=== PATIENT | female | born 1990 | race Caucasian/White ===

== ENCOUNTER → 2016-10-24 | Emergency (ER) | payer BC ==
[~2016-10-24] MED LIST: BUPIVACAINE HCL 0.5 % INJ/PF 30 ML SDV ONE; HYDROCODONE/ACETAMINOPHEN 5-325 MG TABLET ONE; KETOROLAC TROMETHAMINE INJ/PF 30 MG/1 ML SDV ONE; METHYLPREDNISOLONE ACETATE INJ 40 MG/1 ML ML ONE
[2016-10-24 08:41] LABS: ALANINE AMINOTRANSFERASE 17 U/L (9-52); ALBUMIN 4.2 g/dL (3.5-5.0); ALKALINE PHOSPHATASE 55 U/L (38-126); ANION GAP 13 (5-19); ASPARTATE AMINO TRANSFERASE 23 U/L (14-36); BILIRUBIN,TOTAL 0.3 mg/dL (0.2-1.3); BLOOD UREA NITROGEN 13 mg/dL (7-20); CALCIUM 9.7 mg/dL (8.4-10.2); CARBON DIOXIDE 27 mmol/L (22-30); CHLORIDE 101 mmol/L (98-107); CREATININE RESULT 0.68 mg/dL (0.52-1.25); GLUCOSE 98 mg/dL (75-110); POTASSIUM 3.9 mmol/L (3.6-5.0); SODIUM 140.7 mmol/L (137-145); TOTAL PROTEIN 7.5 g/dL (6.3-8.2)
[2016-10-24 08:44] LABS: ABSOLUTE EOSINOPHILS # (AUTO) 0.2 10^3/uL (0.0-0.6); ABSOLUTE LYMPHOCYTES (AUTO) 2.2 10^3/uL (0.5-4.7); ABSOLUTE MONOCYTES (AUTO) 0.6 10^3/uL (0.1-1.4); APPEARANCE,URINE CLEAR; BASOPHILS % (AUTO) 0.6 % (0-2); BILIRUBIN,URINE NEGATIVE (NEGATIVE); EOSINOPHILS % (AUTO) 2.8 % (0-6); GLUCOSE, URINE NEGATIVE (NEGATIVE); HEMATOCRIT 36.5 % (36.0-47.0); HEMOGLOBIN 12.4 g/dL (12.0-15.5); HGB HCT DIFFERENCE 0.7; KETONES,URINE NEGATIVE (NEGATIVE); LEUKOCYTE ESTERASE,URINE NEGATIVE (NEGATIVE); LYMPHOCYTES % (AUTO) 31.1 % (13-45); MEAN CORPUSCULAR HEMOGLOBIN 31.8 pg (27.0-33.4); MEAN CORPUSCULAR HGB CONC 33.9 g/dL (32.0-36.0); MEAN CORPUSCULAR VOLUME 94 fl (80-97); MONOCYTES % (AUTO) 8.5 % (3-13); NITRITE,URINE NEGATIVE (NEGATIVE); PROTEIN,URINE NEGATIVE (NEGATIVE); RED BLOOD COUNT 3.89 10^6/uL (3.72-5.28); RED CELL DISTRIBUTION WIDTH 12.3 % (11.5-14.0); URINE SPECIFIC GRAVITY 1.012; UROBILINOGEN,URINE NEGATIVE mg/dL (<2.0)
== END ==
LOC: ER 04:53
DX: R10.31 Right lower quadrant pain (principal)
CPT/HCPCS: 36415; 80053; 81001; 81025; 85025; 96361; 96374; 99284; J1020

== ENCOUNTER 2020-03-09 03:48 | Observation (INO) | payer BC, MEDICAID ==
[2020-03-09 05:27] LABS: ABSOLUTE EOSINOPHILS # (AUTO) 0.1 10^3/uL (0.0-0.6); ABSOLUTE LYMPHOCYTES (AUTO) 1.3 10^3/uL (0.5-4.7); ABSOLUTE MONOCYTES (AUTO) 0.9 10^3/uL (0.1-1.4); ABSOLUTE NEUT (AUTO) 11.1 10^3/uL (1.7-8.2); BASOPHILS % (AUTO) 0.1 % (0-2); EOSINOPHILS % (AUTO) 0.5 % (0-6); HEMATOCRIT 36.9 % (36.0-47.0); HEMOGLOBIN 12.9 g/dL (12.0-15.5); LYMPHOCYTES % (AUTO) 9.7 % (13-45); MEAN CORPUSCULAR HEMOGLOBIN 31.1 pg (27.0-33.4); MEAN CORPUSCULAR VOLUME 89 fl (80-97); MONOCYTES % (AUTO) 6.6 % (3-13); PLATELET COUNT 289 10^3/uL (150-450); RED BLOOD COUNT 4.16 10^6/uL (3.72-5.28); SEGMENTED NEUTROPHILS % (AUTO) 83.1 % (42-78); TOTAL CELLS COUNTED % (AUTO) 100 %; WHITE BLOOD COUNT 13.4 10^3/uL (4.0-10.5)
[2020-03-09 05:32] LABS: APPEARANCE,URINE SLIGHTLY-CLOUDY; BILIRUBIN,URINE NEGATIVE (NEGATIVE); COLOR,URINE YELLOW; GLUCOSE, URINE NEGATIVE (NEGATIVE); KETONES,URINE 80 mg/dL (NEGATIVE); LEUKOCYTE ESTERASE,URINE TRACE (NEGATIVE); NITRITE,URINE NEGATIVE (NEGATIVE); PROTEIN,URINE NEGATIVE (NEGATIVE); URINE SPECIFIC GRAVITY 1.021; UROBILINOGEN,URINE NEGATIVE mg/dL (<2.0)
[2020-03-09 05:37] LABS: ALBUMIN 4.2 g/dL (3.5-5.0); ALKALINE PHOSPHATASE 80 U/L (38-126); ANION GAP 11 (5-19); ASPARTATE AMINO TRANSFERASE 22 U/L (14-36); BILIRUBIN,TOTAL 0.3 mg/dL (0.2-1.3); BLOOD UREA NITROGEN 4 mg/dL (7-20); CALCIUM 9.7 mg/dL (8.4-10.2); CARBON DIOXIDE 22 mmol/L (22-30); CHLORIDE 101 mmol/L (98-107); GLUCOSE 94 mg/dL (75-110); TOTAL PROTEIN 7.6 g/dL (6.3-8.2)
[2020-03-09] MEDS ORDERED: ONDANSETRON HCL INJ/PF 4 MG/2 ML SDV IV ONE (06:11)
[2020-03-09] MEDS ORDERED: MORPHINE SULFATE 10 MG/ML INJ IV ONE ×2 (06:11→08:39)
--- NOTE | 2020-03-09 06:19 | ER Document Report ---
ED GI/ - Related Data Home Medications: vitamins <CARLOS JASSO - Last Filed: 03/09/20 07:52> <RAVINDRA SADLER - Last Filed: 03/09/20 08:50> - General Chief Complaint: Upper Abdominal Pain Stated Complaint: ABDOMINAL PAIN Time Seen by Provider: 03/09/20 06:05 Primary Care Provider: NINOSKA HUNT NP [Primary Care Provider] - Follow up as needed Notes: CHIEF COMPLAINT: Abdominal pain since yesterday HPI: 29-year-old female prima who is approximately 12 weeks by ultrasound who follows with [facility] presenting for right lower quadrant pain over the last 24 hours. Pain is been constant in nature. Patient states the pain becomes so bad at times that she will throw up. No kidney stone history. Patient states she had some discomfort a week ago and went to [facility] where she had an ultrasound of the gallbladder that showed no kidney stones. Patient states she has had an ultrasound of her and states that there is an intrauterine not an ectopic . Patient denies vaginal bleeding or discharge. Pain is worse with position or movement. She has not had a definitive fever. ROS: See HPI - all other systems were reviewed and are otherwise negative Constitutional: no fever Eyes: no drainage, no blurred vision ENT: no runny nose, no sore throat Cardiovascular: no chest pain Resp: no SOB, no cough GI: + vomiting, no diarrhea, + abdominal pain : no dysuria Integumentary: no rash Allergy: no hives Musculoskeletal: no extremity pain or swelling Neurological: no numbness/tingling, no weakness MEDICATIONS: I agree with the patient medications as charted by the RN. ALLERGIES: I agree with the allergies as charted by the RN. PAST MEDICAL HISTORY/PAST SURGICAL HISTORY: Reviewed and agree as charted by RN. SOCIAL HISTORY: Reviewed and agree as charted by RN. FAMILY HISTORY: No significant familial comorbid conditions directly related to patient complaint EXAM: Reviewed vital signs as charted by RN. CONSTITUTIONAL: Alert and oriented and responds appropriately to questions. Well-appearing; well-nourished, mildly uncomfortable appearing HEAD: Normocephalic; atraumatic EYES: PERRL; Conjunctivae clear, sclerae non-icteric ENT: normal nose; no rhinorrhea; moist mucous membranes; pharynx without lesions noted, no uvula edema or deviation, no tonsillar hypertrophy, phonation normal NECK: Supple without meningismus; non-tender; no cervical lymphadenopathy, no masses CARD: RRR; no murmurs, no clicks, no rubs, no gallops; symmetric distal pulses RESP: Normal chest excursion without splinting or tachypnea; breath sounds clear and equal bilaterally; no wheezes, no rhonchi, no rales, pulse oximetry 97% on room air not hypoxic ABD/GI: Normal bowel sounds; non-distended; soft, patient with no tenderness in the right upper quadrant on palpation. Minimal epigastric tenderness on palpation. Moderate tenderness in the right lower quadrant over McBurney's point with rebound and guarding; no palpable organomegaly or masses. BACK: The back appears normal and is non-tender to palpation, there is no CVA tenderness EXT: Normal ROM in all joints; non-tender to palpation; no cyanosis, no effusions, no edema SKIN: Normal color for age and race; warm; dry; good turgor; no acute lesions noted NEURO: Moves all extremities equally; Motor and sensory function intact PSYCH: The patient's mood and manner are appropriate. Grooming and personal h ygiene are appropriate. MDM: 29-year-old 12-week female with right lower quadrant pain. I nitial screening labs obtained in triage show mild leukocytosis of 13.5. States she had an ultrasound a week ago that showed no gallstones at [facility] emergency department. Differential would still include pyelonephritis, kidney stone. Given her we cannot CT of the abdomen will obtain MRI to rule out appendicitis (CARLOS JASSO) - Related Data Allergies/Adverse Reactions: No Known Allergies Allergy (Unverified 08/17/12 00:52) Past Medical History - Social History Smoking Status: Never Smoker Chew tobacco use (# tins/day): No Frequency of alcohol use: Occasional Drug Abuse: None Family History: Reviewed & Not Pertinent Patient has homicidal ideation: No - Immunizations Immunizations up to date: No Hx Diphtheria, Pertussis, Tetanus Vaccination: Yes - 2010 <CARLOS JASSO - Last Filed: 03/09/20 07:52> Physical Exam - Vital signs Vitals: Temp Pulse Resp BP Pulse Ox 97.4 F 95 20 112/46 L 100 03/09/20 04:16 03/09/20 04:16 03/09/20 04:16 03/09/20 04:16 03/09/20 04:16 Course - Laboratory Result Diagrams: 03/09/20 04:51 03/09/20 04:51 <CARLOS JASSO - Last Filed: 03/09/20 07:52> - Laboratory Result Diagrams: 03/09/20 04:51 03/09/20 04:51 <RAVINDRA SADLER - Last Filed: 03/09/20 08:50> - Re-evaluation Re-evalutation: 03/09/20 07:52 Report to BERT Robertson will follow and disposition (CARLOS JASSO) 03/09/20 08:40 Patient has acute appendicitis based off her MRI. Attempted to call Dr. Saravia, the surgeon talent acquisition director via the clarifying plant operator. Will await callback. 03/09/20 08:[address] Saravia, the surgeon talent acquisition director. States he will see the patient. We will give the patient another 2 mg of morphine, she is still in pain. We will also start her on Zosyn for antibiotic coverage. (CARMEL SADLERIE Yosvany) - Vital Signs Vital signs: Temp Pulse Resp BP Pulse Ox 98.9 F 91 18 129/77 H 97 03/09/20 08:00 03/09/20 08:00 03/09/20 08:00 03/09/20 08:00 03/09/20 08:00 - Laboratory Laboratory results interpreted by me: 03/09/20 03/09/20 03/09/20 04:51 04:51 04:51 WBC 13.4 H Lymph % (Auto) 9.7 L Absolute Neuts (auto) 11.1 H Seg Neutrophils % 83.1 H Sodium 134.4 L BUN 4 L Creatinine 0.51 L Beta HCG, Quant 949877.00 H Urine Ketones 80 H Ur Leukocyte Esterase TRACE H Discharge <CARLOS JASSO - Last Filed: 03/09/20 07:52> - Discharge Admitting Provider: Surgicalist Unit Admitted: Surgical Floor <CARMEL SADLERAVELINA Bar - Last Filed: 03/09/20 08:50> - Discharge Clinical Impression: 12 weeks gestation of Acute appendicitis Qualifiers: Acute appendicitis type: unspecified acute appendicitis type Qualified Code(s): K35.80 - Unspecified acute appendicitis Condition: Stable Disposition: ADMITTED INPATIENT Referrals: NINOSKA HUNT [employer] [Primary Care Provider] - Follow up as needed
[2020-03-09] MEDS ORDERED: NEOSTIGMINE METHYLSULFATE 10 MG/10 ML VIAL ONE (08:02)
[2020-03-09] MEDS ORDERED: GLYCOPYRROLATE 1 MG/5 ML VIAL ONE (08:02)
--- NOTE | 2020-03-09 08:37 | RADIOLOGY REPORT (SQ) ---
EXAM DESCRIPTION: MRI ABDOMEN WITHOUT IMAGES COMPLETED DATE/TIME: 03/09/2020 7:42 am REASON FOR STUDY: r/o appy in patient COMPARISON: None. TECHNIQUE: Multiplanar multisequence MR images of the abdomen were obtained without intravenous cont rast. FINDINGS: There is a thick-walled blind-ending tubular structure that extends from the base of the c ecum into the right adnexa consistent with a dilated inflamed appendix ; the diameter of the appendix measures 17 mm and its wall measures 4.2 mm in thickness. There is a round low T2 signal intralumin al filling defect near the orifice of the appendix that measures 6 mm in diameter consistent with an appendicolith. The high T2 signal around the dilated appendix in the right lower quadrant and right adnexum is consistent with fluid/ inflammation. There is a cluster of borderline enlarged reactive lymph nodes in the right lower quadrant that measu re up to 7 mm in diameter. There is no associated bowel obstruction. There is a gravid uterus. IMPRESSION: Findings as above consistent with an acute appendicitis. COMMENT: This report was called to Emergency Department at08:30 on 03/09/2020. TECHNICAL DOCUMENTATION: JOB ID: [id number] 2010 [employer]- All Rights Reserved Reading location - IP/workstation name: [email or web address]
[2020-03-09] MEDS ORDERED: PIPERACILLIN/TAZOBACTAM 3.375 GM VIAL IV ONE (08:44)
[2020-03-09] MEDS: DEXTROSE 5%-LACTATED RINGERS 1,000 ML IV PRN ×2 (10:48→23:34)
--- NOTE | 2020-03-09 11:28 | PDOC H&P ---
History of Present Illness Admission Date/PCP: 03/09/20 10:45 NINOSKA HUNT NP Patient complains of: Right lower quadrant pain History of Present Illness: SAEED BURROUGHS is a 29 year old female with a 2-day history of sharp, stabbing right lower quadrant pain. It began in the periumbilical region, and transitioned into the right lower quadrant. The pain intensified, and the patient presented for evaluation in the emergency department. She denies fevers, chills, nausea, vomiting, melena, hematochezia, hematemesis. She also denies chest pain, shortness of breath, headache, dizziness, orthostasis, fatigue, or malaise. She rates her pain 5 out of 10. It does not radiate. Nothing makes the pain better. Movement and palpation make it worse. She is currently 12 weeks . Past Medical History Medical History: None Renal/ History Note: She is currently 12 weeks . Past Surgical History Past Surgical History: Reports: None Social History Smoking Status: Never Smoker Electronic Cigarette use?: No Frequency of Alcohol Use: None Hx Recreational Drug Use: No Hx Prescription Drug Abuse: No Family History Family History: Reviewed & Not Pertinent Parental Family History Reviewed: Yes Children Family History Reviewed: Yes Sibling(s) Family History Reviewed.: Yes Medication/Allergy Home Medications: Pnv No.95/Ferrous Fum/Folic AC [ Caplet] 1 tab PO DAILY 03/09/20 Allergies/Adverse Reactions: No Known Allergies Allergy (Unverified 08/17/12 00:52) Review of Systems Constitutional: ABSENT: anorexia, chills, fatigue, fever(s), headache(s), night sweats, weakness Eyes: ABSENT: visual disturbances Ears: ABSENT: hearing changes Nose, Mouth, and Throat: ABSENT: headache(s), sore throat Cardiovascular: ABSENT: chest pain Respiratory: ABSENT: cough, dyspnea Gastrointestinal: PRESENT: abdominal pain. ABSENT: hematemesis, hematochezia, melena, nausea, vomiting Genitourinary: ABSENT: dysuria Integumentary: ABSENT: pruritus, rash Neurological: ABSENT: confusion, convulsions, dizziness Psychiatric: ABSENT: anxiety, depression Endocrine: ABSENT: cold intolerance, heat intolerance Hematologic/Lymphatic: ABSENT: easy bleeding, easy bruising Physical Exam Vital Signs: Temp Pulse Resp BP Pulse Ox 98.9 F 91 18 129/77 H 97 03/09/20 08:00 03/09/20 08:00 03/09/20 08:00 03/09/20 08:00 03/09/20 08:00 Intake & Output 03/08/20 03/09/20 03/10/20 06:59 06:59 06:59 Weight 92.079 kg General appearance: PRESENT: no acute distress, obese Head exam: PRESENT: atraumatic, normocephalic Eye exam: PRESENT: EOMI, PERRLA. ABSENT: scleral icterus Mouth exam: PRESENT: moist, neck supple Neck exam: ABSENT: meningismus, tenderness, thyromegaly, tracheal deviation Respiratory exam: PRESENT: unlabored. ABSENT: tachypnea, wheezes Cardiovascular exam: ABSENT: tachycardia Pulses: ABSENT: normal radial pulses Vascular exam: ABSENT: pallor GI/Abdominal exam: PRESENT: soft, tenderness - Right lower quadrant. ABSENT: distended, firm, rebound, rigid Rectal exam: PRESENT: deferred Extremities exam: ABSENT: clubbing Musculoskeletal exam: ABSENT: deformity Neurological exam: PRESENT: alert, awake, oriented to person, oriented to place, oriented to time, oriented to situation, CN II-XII grossly intact. ABSENT: motor sensory deficit Psychiatric exam: ABSENT: agitated, anxious, depressed Focused psych exam: ABSENT: delusional Skin exam: ABSENT: cyanosis, erythema, jaundice Results Laboratory Results: 03/09/20 04:51 03/09/20 04:51 03/09/20 03/09/20 03/09/20 04:51 04:51 04:51 WBC 13.4 H RBC 4.16 Hgb 12.9 Hct 36.9 MCV 89 MCH 31.1 MCHC 35.0 RDW 13.0 Plt Count 289 Seg Neutrophils % 83.1 H Sodium 134.4 L Potassium 4.0 Chloride 101 Carbon Dioxide 22 Anion Gap 11 BUN 4 L Creatinine 0.51 L Est GFR ( Amer) > 60 Glucose 94 Calcium 9.7 Total Bilirubin 0.3 AST 22 Alkaline Phosphatase 80 Total Protein 7.6 Albumin 4.2 Lipase 178.4 Urine Color YELLOW Urine Appearance SLIGHTLY-CLOUDY Urine pH 5.0 Ur Specific [place] 1.021 Urine Protein NEGATIVE Urine Glucose (UA) NEGATIVE Urine Ketones 80 H Urine Blood NEGATIVE Urine Nitrite NEGATIVE Ur Leukocyte Esterase TRACE H Urine WBC (Auto) 6 Urine RBC (Auto) 2 Impressions: Abdomen MRI 03/09/20 06:11 IMPRESSION: Findings as above consistent with an acute appendicitis. Assessment & Plan - Diagnosis (1) 12 weeks gestation of Is this a current diagnosis for this admission?: Yes (2) Acute appendicitis Qualifiers: Acute appendicitis type: unspecified acute appendicitis type Qualified Code(s): K35.80 - Unspecified acute appendicitis Is this a current diagnosis for this admission?: Yes - Plan Summary Plan Summary: This is a 29-year-old female who is 12 weeks . She has an elevated white blood cell count, and an MRI consistent with acute appendicitis. The patient clinically has signs and symptoms of appendicitis as well. A long discussion was had with the patient regarding potential treatment options. I have reviewed both operative and nonoperative management of her acute appendicitis. I have also discussed factors related to her . After much discussion, the patient has chosen operative intervention for her acute appendicitis. Risk to the fetus was discussed with both operative and nonoperative strategies. Benefits were also discussed at length for both strategies. Informed consent was obtained from the patient, and all questions were answered.
[2020-03-09] MEDS: ONDANSETRON HCL INJ/PF 4 MG/2 ML SDV IV PRN ×2 (11:30→17:43)
[2020-03-09] MEDS ORDERED: BUPIVACAINE HCL 0.25 % INJ/PF (2.5 MG/1 ML) 30 ML VIAL ONE (11:49)
[2020-03-09] MEDS ORDERED: ONDANSETRON HCL INJ/PF 4 MG/2 ML SDV IV PRN (12:47)
[2020-03-09] MEDS ORDERED: FENTANYL CITRATE INJ/PF 100 MCG/2 ML AMPUL IV PRN ×3 (12:47)
[2020-03-09] MEDS ORDERED: OXYCODONE-ACETAMINOPHEN 5-325 MG TABLET PO PRN ×2 (12:47)
[2020-03-09] MEDS ORDERED: MORPHINE SULFATE 10 MG/ML INJ IV PRN (12:47)
--- NOTE | 2020-03-09 13:12 | Operative Report ---
Nonrecallable Operative Report DATE OF SURGERY: 03/09/20 PREOPERATIVE DIAGNOSIS: Acute appendicitis POSTOPERATIVE DIAGNOSIS: Acute appendicitis with local/contained perforation OPERATION: Laparoscopic appendectomy SURGEON: NICK NOLASCO ANESTHESIA: GA TISSUE REMOVED OR ALTERED: Appendix COMPLICATIONS: None apparent ESTIMATED BLOOD LOSS: Minimal PROCEDURE: Drains/implants: None. Procedure in detail: After informed consent was obtained, the patient was brought to the operating room and laid in the supine position. The area of the abdomen was prepped and draped in a normal sterile fashion. An infraumbilical curvilinear incision was created with a 15 blade scalpel. Dissection was carried through the subcutaneous tissues using sharp and blunt dissection. The cicatrix is identified, grasped with a Gerri clamp, and retracted upwards. The linea alba fascia was incised sharply, the abdomen was entered sharply. The balloon trocar was inserted, and pneumoperitoneum was achieved. Upon examination of the abdomen a gravid uterus was seen within the pelvis. It did not extend up to the level of the umbilicus yet. Under direct laparoscopic visualization, a suprapubic 5 mm trocar was placed as well as a left lower quadrant 5 mm trocar. Next, atraumatic graspers were placed through the 5 mm ports. The appendix was identified. There was a dense inflammatory reaction to the right lower pelvic sidewall. Small bowel was teased away from the inflamed appendix, to reveal a locally perforated appendix with a small amount of purulent periappendiceal fluid. All of this fluid was suctioned and removed from the right lower quadrant. Next, the appendix was freed from the surrounding tissues using a mixture of blunt dissection and harmonic scalpel. The mesoappendix was taken down using the harmonic scalpel. The appendix was encircled x2 with PDS Endoloops. The harmonic scalpel was then used to amputate the appendix. The appendix was placed into an Endo Catch bag and pulled out through the umbilicus. The camera was reinserted. The right lower quadrant was inspected. There was good hemostasis noted. Next, the 5 mm trochars were removed under direct laparoscopic visualization. The infraumbilical trocar was then removed, and pneumoperitoneum was relieved. The infraumbilical fascia was closed using 0 Vicryl suture in [id number] fashion. The overlying skin was closed using 4-0 Vicryl Rapide suture in subcuticular fashion. Dressings were placed, and the procedure was concluded. All sponge, instrument, and needle counts were correct x2. Condition: Stable.
[2020-03-09] MEDS ORDERED: ONDANSETRON HCL INJ/PF 4 MG/2 ML SDV ONE (13:59)
[2020-03-09] MEDS: MORPHINE SULFATE 10 MG/ML INJ IV PRN ×2 (14:55→20:56)
[2020-03-09] MEDS: ACETAMINOPHEN 1,000 MG/100 ML RTUPB IV SCH ×2 (15:19→22:18)
[2020-03-09] MEDS: OXYCODONE HCL IR 5 MG TABLET PO PRN ×2 (17:54→23:33)
[2020-03-09] MEDS: PIPERACILLIN SODIUM/TAZOBACTAM 3.375 GM in NORMAL SALINE 100 ML IV SCH ×2 (17:55→23:34)
[2020-03-09] MEDS ORDERED: ACETAMINOPHEN 1,000 MG/100 ML RTUPB IV ONE (21:48)
[2020-03-10] MEDS: ONDANSETRON HCL INJ/PF 4 MG/2 ML SDV IV PRN ×2 (02:29→09:32)
[2020-03-10] MEDS: MORPHINE SULFATE 10 MG/ML INJ IV PRN ×2 (02:31→09:32)
[2020-03-10] MEDS ORDERED: PROMETHAZINE HCL INJ 25 MG/1 ML VIAL IV ONE (04:00)
[2020-03-10] MEDS ORDERED: ACETAMINOPHEN 1,000 MG/100 ML RTUPB IV ONE ×2 (04:57→21:04)
[2020-03-10] MEDS: ACETAMINOPHEN 1,000 MG/100 ML RTUPB IV SCH ×3 (05:03→21:32)
[2020-03-10] MEDS: PIPERACILLIN SODIUM/TAZOBACTAM 3.375 GM in NORMAL SALINE 100 ML IV SCH ×3 (05:26→18:19)
[2020-03-10 07:56] LABS: ABSOLUTE LYMPHOCYTES (AUTO) 1.1 10^3/uL (0.5-4.7); ABSOLUTE MONOCYTES (AUTO) 0.9 10^3/uL (0.1-1.4); ABSOLUTE NEUT (AUTO) 11.6 10^3/uL (1.7-8.2); BASOPHILS % (AUTO) 0.1 % (0-2); EOSINOPHILS % (AUTO) 0.1 % (0-6); HEMATOCRIT 32.9 % (36.0-47.0); HEMOGLOBIN 11.2 g/dL (12.0-15.5); LYMPHOCYTES % (AUTO) 8.3 % (13-45); MEAN CORPUSCULAR HEMOGLOBIN 30.4 pg (27.0-33.4); MEAN CORPUSCULAR HGB CONC 33.9 g/dL (32.0-36.0); MEAN CORPUSCULAR VOLUME 90 fl (80-97); MONOCYTES % (AUTO) 6.9 % (3-13); PLATELET COUNT 254 10^3/uL (150-450); RED BLOOD COUNT 3.67 10^6/uL (3.72-5.28); RED CELL DISTRIBUTION WIDTH 12.8 % (11.5-14.0); SEGMENTED NEUTROPHILS % (AUTO) 84.6 % (42-78); TOTAL CELLS COUNTED % (AUTO) 100 %; WHITE BLOOD COUNT 13.7 10^3/uL (4.0-10.5)
--- NOTE | 2020-03-10 08:33 | PDOC PROGRESS REPORT ---
Subjective Progress Note for:: 03/10/20 Subjective:: feels ok, no flatus Reason For Visit: ACUTE APPENDICITIS Physical Exam Vital Signs: Temp Pulse Resp BP Pulse Ox 98.2 F 114 H 20 115/68 98 03/10/20 03:40 03/10/20 03:40 03/10/20 03:40 03/10/20 03:40 03/10/20 03:40 Intake & Output 03/09/20 03/10/20 03/11/20 06:59 06:59 06:59 Intake Total 2750 Output Total 1355 Balance 1395 Weight 92.079 kg 93.6 kg General appearance: PRESENT: no acute distress Head exam: PRESENT: normocephalic Eye exam: PRESENT: EOMI Ear exam: PRESENT: normal external ear exam Mouth exam: PRESENT: moist Neck exam: PRESENT: full ROM Respiratory exam: PRESENT: clear to auscultation manjeet Cardiovascular exam: PRESENT: RRR Pulses: PRESENT: normal radial pulses, normal femoral pulses Vascular exam: PRESENT: normal capillary refill Breast: PRESENT: Normal GI/Abdominal exam: PRESENT: soft Rectal exam: PRESENT: deferred Gentrourinary exam: PRESENT: indwelling catheter Extremities exam: PRESENT: full ROM Musculoskeletal exam: PRESENT: full ROM Neurological exam: PRESENT: alert, altered, awake, oriented to person, oriented to place Psychiatric exam: PRESENT: appropriate affect Skin exam: PRESENT: dry Results Laboratory Results: 03/10/20 06:59 03/09/20 04:51 03/10/20 06:59 WBC 13.7 H RBC 3.67 L Hgb 11.2 L Hct 32.9 L MCV 90 MCH 30.4 MCHC 33.9 RDW 12.8 Plt Count 254 Seg Neutrophils % 84.6 H Impressions: Abdomen MRI 03/09/20 06:11 IMPRESSION: Findings as above consistent with an acute appendicitis. Assessment & Plan - Plan Summary Plan Summary: pod 1 s/p lap appy urine retention last night post op tenorio placed this am awake ambulatory will dc jona today reg diet cont iv abx home later today on po abx for 7 days if she can void and tolerates diet.
--- NOTE | 2020-03-10 12:18 | RADIOLOGY REPORT (SQ) ---
EXAM DESCRIPTION: U/S OB LIMITED IMAGES COMPLETED DATE/TIME: 03/10/2020 12:07 pm REASON FOR STUDY: s/p appy. need heart tones please COMPARISON: None. TECHNIQUE: Limited transabdominal grayscale ultrasound for evaluation of specific requested obstetri sugar parameters. LIMITATIONS: None. FINDINGS: EGA: 11 week 5 day. SAHIL: 09/24/2020. CRL: 4.9 cm. FHR: 175 beats per minute. OTHER: No other significant findings. IMPRESSION: LIMITED OBSTETRICAL ULTRASOUND WITH MEASURED PARAMETERS DELINEATED ABOVE. Trimester of : First trimester - 0 to 13 weeks. TECHNICAL DOCUMENTATION: JOB ID: [id number] 2010 [employer]- All Rights Reserved Reading location - IP/workstation name: [email or web address]
--- NOTE | 2020-03-10 12:54 | PDOC PROGRESS REPORT ---
Subjective Progress Note for:: 03/10/20 Subjective:: pt @ 12wga s/p lap appy, reports feeling sore; worried that something is wrong with her baby after surgery, has nuchal/nob at [facility] tomorrow. No other concerns. Reason For Visit: ACUTE APPENDICITIS Physical Exam - Physical Exam Vital Signs: Temp Pulse Resp BP Pulse Ox 98.3 F 99 22 H 93/53 L 99 03/10/20 08:00 03/10/20 08:00 03/10/20 08:00 03/10/20 08:00 03/10/20 08:00 Intake & Output 03/09/20 03/10/20 03/11/20 06:59 06:59 06:59 Intake Total 2750 100 Output Total 1355 700 Balance 1395 -600 Weight 92.079 kg 93.6 kg General appearance: PRESENT: no acute distress Neurological exam: PRESENT: alert, altered Psychiatric exam: PRESENT: flat affect Result Laboratory Results: 03/10/20 06:59 03/09/20 04:51 03/10/20 06:59 WBC 13.7 H RBC 3.67 L Hgb 11.2 L Hct 32.9 L MCV 90 MCH 30.4 MCHC 33.9 RDW 12.8 Plt Count 254 Seg Neutrophils % 84.6 H Impressions: Abdomen MRI 03/09/20 06:11 IMPRESSION: Findings as above consistent with an acute appendicitis. Obstetrics Ultrasound 03/10/20 00:00 IMPRESSION: LIMITED OBSTETRICAL ULTRASOUND WITH MEASURED PARAMETERS DELINEATED ABOVE. Trimester of : First trimester - 0 to 13 weeks. Assessment & Plan - Diagnosis (1) 12 weeks gestation of Is this a current diagnosis for this admission?: Yes Plan: abdomen soft, tender, unable to obtain heart tones with doppler. Pt sent to sono for u/s which found baby cwd, normal heart rate for gestational age as well as CL. (2) Acute appendicitis Qualifiers: Acute appendicitis type: unspecified acute appendicitis type Qualified Code(s): K35.80 - Unspecified acute appendicitis Is this a current diagnosis for this admission?: Yes Plan: stable, expected discharge later today - Time Time Spent with patient: Less than 15 minutes - Plan Summary Plan Summary: Pt reassured and to keep scheduled visit for nuchal/nob if d/c today. Reviewed warning s/s and reasons to rtc/ER prior to visit. pt asked questions and verbalized understanding
--- NOTE | 2020-03-10 13:13 | PDOC CONSULTATION ---
Consultation Consult Date: 03/10/20 Attending physician:: NICK NOLASCO Provider Consulted: SOPHIA LIZ Consult reason:: concerns about baby History of Present Illness Admission Date/PCP: 03/09/20 10:45 NINOSKA HUNT NP Patient complains of: abd pain after l/s appy History of Present Illness: SAEED BURROUGHS is a 29 year old female underwent l/s appy yesterday and is 12wks and is worried if baby is ok Past Medical History LMP: 12/17/2019 Gynecological Infection: No Psychiatric Medical History: Denies: Depression Social History Information Source: Patient Lives with: Family Smoking Status: Never Smoker Electronic Cigarette use?: No Frequency of Alcohol Use: None Hx Recreational Drug Use: No Drugs: None Hx Prescription Drug Abuse: No - Advance Directive Resuscitation Status: Full Code Family History Family History: None, Reviewed & Not Pertinent Parental Family History Reviewed: No Children Family History Reviewed: NA Sibling(s) Family History Reviewed.: NA Medication/Allergy Home Medications: Pnv No.95/Ferrous Fum/Folic AC [ Caplet] 1 tab PO DAILY 03/09/20 Allergies/Adverse Reactions: No Known Allergies Allergy (Unverified 08/17/12 00:52) Physical Exam - Physical Exam Vital Signs: Temp Pulse Resp BP Pulse Ox 98.2 F 88 22 H 122/72 100 03/10/20 12:00 03/10/20 12:00 03/10/20 12:00 03/10/20 12:00 03/10/20 12:00 Intake & Output 03/09/20 03/10/20 03/11/20 06:59 06:59 06:59 Intake Total 2750 100 Output Total 1355 700 Balance 1395 -600 Weight 92.079 kg 93.6 kg General appearance: PRESENT: no acute distress, well-developed, well-nourished GI/Abdominal exam: PRESENT: other - per CNM Rectal exam: PRESENT: deferred Neurological exam: PRESENT: alert, awake, oriented to person, oriented to place, oriented to time, oriented to situation, CN II-XII grossly intact. ABSENT: motor sensory deficit Psychiatric exam: PRESENT: appropriate affect, normal mood. ABSENT: homicidal ideation, suicidal ideation Skin exam: PRESENT: dry, intact, warm, other - incision c/d/i. ABSENT: cyanosis, rash Result Laboratory Results: 03/10/20 06:59 03/09/20 04:51 03/10/20 06:59 WBC 13.7 H RBC 3.67 L Hgb 11.2 L Hct 32.9 L MCV 90 MCH 30.4 MCHC 33.9 RDW 12.8 Plt Count 254 Seg Neutrophils % 84.6 H Impressions: Abdomen MRI 03/09/20 06:11 IMPRESSION: Findings as above consistent with an acute appendicitis. Obstetrics Ultrasound 03/10/20 00:00 IMPRESSION: LIMITED OBSTETRICAL ULTRASOUND WITH MEASURED PARAMETERS DELINEATED ABOVE. Trimester of : First trimester - 0 to 13 weeks. Status: Imported from PACS Assessment & Plan - Diagnosis (1) 12 weeks gestation of Is this a current diagnosis for this admission?: Yes Plan: apparently they were unable to get FHT last pm US this am with viable IUP at approp gestation. She has an appt with A for NF and new OB appt tomorrow. (2) Urinary retention Is this a current diagnosis for this admission?: Yes Plan: tenorio removed this am. Defer to primary team regarding DTV. (3) Acute appendicitis Qualifiers: Acute appendicitis type: unspecified acute appendicitis type Qualified Code(s): K35.80 - Unspecified acute appendicitis Is this a current diagnosis for this admission?: Yes Plan: defer to primary team - Time Medications reviewed and adjusted accordingly: Yes Anticipated discharge: Home Within: Other - per primary team - Inpatient Certification Based on my medical assessment, after consideration of the patient's comorbi dities, presenting symptoms, or acuity I expect that the services needed warrant INPATIENT care.: Yes I certify that my determination is in accordance with my understanding of Medicare's requirements for reasonable and necessary INPATIENT services [42 CFR 412.3e].: Yes Medical Necessity: Other - void and bowel per primary team - Plan Summary Plan Summary: keep appt with [facility] tomorrow.
[2020-03-10] MEDS: PROMETHAZINE HCL 25 MG TABLET PO PRN (20:04)
[2020-03-10] MEDS ORDERED: ONDANSETRON HCL INJ/PF 4 MG/2 ML SDV IV PRN (22:05)
[2020-03-10] MEDS ORDERED: METOCLOPRAMIDE HCL INJ/PF 10 MG/2 ML SDV IV PRN (22:11)
[2020-03-11] MEDS: DEXTROSE 5%-LACTATED RINGERS 1,000 ML IV PRN (00:09)
[2020-03-11] MEDS: PIPERACILLIN SODIUM/TAZOBACTAM 3.375 GM in NORMAL SALINE 100 ML IV SCH ×3 (00:09→11:07)
[2020-03-11] MEDS: PROMETHAZINE HCL 25 MG TABLET PO PRN (02:36)
[2020-03-11] MEDS: ACETAMINOPHEN 1,000 MG/100 ML RTUPB IV SCH (05:08)
[2020-03-11 06:56] LABS: ABSOLUTE BASOPHILS # (AUTO) 0.1 10^3/uL (0.0-0.2); ABSOLUTE MONOCYTES (AUTO) 0.9 10^3/uL (0.1-1.4); ABSOLUTE NEUT (AUTO) 11.2 10^3/uL (1.7-8.2); BASOPHILS % (AUTO) 0.4 % (0-2); EOSINOPHILS % (AUTO) 0.3 % (0-6); HEMATOCRIT 31.6 % (36.0-47.0); HEMOGLOBIN 10.9 g/dL (12.0-15.5); LYMPHOCYTES % (AUTO) 7.7 % (13-45); MEAN CORPUSCULAR HEMOGLOBIN 30.8 pg (27.0-33.4); MEAN CORPUSCULAR HGB CONC 34.6 g/dL (32.0-36.0); MEAN CORPUSCULAR VOLUME 89 fl (80-97); MONOCYTES % (AUTO) 6.6 % (3-13); PLATELET COUNT 270 10^3/uL (150-450); RED BLOOD COUNT 3.55 10^6/uL (3.72-5.28); TOTAL CELLS COUNTED % (AUTO) 100 %; WHITE BLOOD COUNT 13.2 10^3/uL (4.0-10.5)
--- NOTE | 2020-03-11 10:20 | PDOC DISCHARGE SUMMARY ---
General - Admit/Disc Date/PCP Admission Date/Primary Care Provider: 03/09/20 10:45 NINOSKA HUNT NP Discharge Date: 03/11/20 - Discharge Diagnosis Final Diagnosis: appendiciits - Assessment Summary: pt 14wks presented with appendicitis taken to operating room for laparoscopic appendectomy noted to have early perforation rx with iv abx pt improved over 48hrs. nausea resolved and she became tolerant to reg diet and had return of bowel function will dc home on po augmentin f/u in 7-10 days. - Additional Information Resuscitation Status: Full Code Discharge Diet: As Tolerated Discharge Activity: Activity As Tolerated, No Lifting Over 10 Pounds Referrals: NINOSKA HUNT, BERT [Primary Care Provider] - Follow up as needed Prescriptions: Amoxicillin/Potassium Clav [Augmentin 875-125 Tablet] 1 tab PO BID #20 tab Home Medications: Pnv No.95/Ferrous Fum/Folic AC [ Caplet] 1 tab PO DAILY 03/09/20 Amoxicillin/Potassium Clav [Augmentin 875-125 Tablet] 1 tab PO BID #20 tab 03/11/20 History of Present Illiness History of Present Illness: SAEED BURROUGHS is a 29 year old female Physical Exam Vital Signs: Temp Pulse Resp BP Pulse Ox 98.0 F 94 18 115/68 97 03/11/20 08:20 03/11/20 08:20 03/11/20 08:20 03/11/20 08:20 03/11/20 08:20 Intake & Output 03/10/20 03/11/20 03/12/20 06:59 06:59 06:59 Intake Total 2750 2950 Output Total 1355 1950 Balance 1395 1000 Weight 93.6 kg Results Laboratory Results: WBC 13.2 10^3/uL (4.0-10.5) H 03/11/20 06:35 RBC 3.55 10^6/uL (3.72-5.28) L 03/11/20 06:35 Hgb 10.9 g/dL (12.0-15.5) L 03/11/20 06:35 Hct 31.6 % (36.0-47.0) L 03/11/20 06:35 MCV 89 fl (80-97) 03/11/20 06:35 MCH 30.8 pg (27.0-33.4) 03/11/20 06:35 MCHC 34.6 g/dL (32.0-36.0) 03/11/20 06:35 RDW 13.0 % (11.5-14.0) 03/11/20 06:35 Plt Count 270 10^3/uL (150-450) 03/11/20 06:35 Lymph % (Auto) 7.7 % (13-45) L 03/11/20 06:35 [place] % (Auto) 6.6 % (3-13) 03/11/20 06:35 Eos % (Auto) 0.3 % (0-6) 03/11/20 06:35 Baso % (Auto) 0.4 % (0-2) 03/11/20 06:35 Absolute Neuts (auto) 11.2 10^3/uL (1.7-8.2) H 03/11/20 06:35 Absolute Lymphs (auto) 1.0 10^3/uL (0.5-4.7) 03/11/20 06:35 Absolute Monos (auto) 0.9 10^3/uL (0.1-1.4) 03/11/20 06:35 Absolute Eos (auto) 0.0 10^3/uL (0.0-0.6) 03/11/20 06:35 Absolute Basos (auto) 0.1 10^3/uL (0.0-0.2) 03/11/20 06:35 Seg Neutrophils % 85.0 % (42-78) H 03/11/20 06:35 Sodium 134.4 mmol/L (137-145) L 03/09/20 04:51 Potassium 4.0 mmol/L (3.6-5.0) 03/09/20 04:51 Chloride 101 mmol/L (98-107) 03/09/20 04:51 Carbon Dioxide 22 mmol/L (22-30) 03/09/20 04:51 Anion Gap 11 (5-19) 03/09/20 04:51 BUN 4 mg/dL (7-20) L 03/09/20 04:51 Creatinine 0.51 mg/dL (0.52-1.25) L 03/09/20 04:51 Est GFR ( Amer) > 60 (>60) 03/09/20 04:51 Est GFR (MDRD) Non-Af > 60 (>60) 03/09/20 04:51 Glucose 94 mg/dL (75-110) 03/09/20 04:51 Calcium 9.7 mg/dL (8.4-10.2) 03/09/20 04:51 Total Bilirubin 0.3 mg/dL (0.2-1.3) 03/09/20 04:51 Direct Bilirubin 0.0 mg/dL (0.0-0.4) 03/09/20 04:51 Neonat Total Bilirubin Not Reportable 03/09/20 04:51 Neonat Direct Bilirubin Not Reportable 03/09/20 04:51 Neonat Indirect Bili Not Reportable 03/09/20 04:51 AST 22 U/L (14-36) 03/09/20 04:51 ALT 17 U/L (<35) 03/09/20 04:51 Alkaline Phosphatase 80 U/L (38-126) 03/09/20 04:51 Total Protein 7.6 g/dL (6.3-8.2) 03/09/20 04:51 Albumin 4.2 g/dL (3.5-5.0) 03/09/20 04:51 Lipase 178.4 U/L (23-300) 03/09/20 04:51 Beta HCG, Quant 072170.00 mIU/mL (0.0-6.15) H 03/09/20 04:51 Total Beta HCG POSITIVE (NEGATIVE) 03/09/20 04:51 Urine Color YELLOW 03/09/20 04:51 Urine Appearance SLIGHTLY-CLOUDY 03/09/20 04:51 Urine pH 5.0 (5.0-9.0) 03/09/20 04:51 Ur Specific [place] 1.021 03/09/20 04:51 Urine Protein NEGATIVE mg/dL (NEGATIVE) 03/09/20 04:51 Urine Glucose (UA) NEGATIVE mg/dL (NEGATIVE) 03/09/20 04:51 Urine Ketones 80 mg/dL (NEGATIVE) H 03/09/20 04:51 Urine Blood NEGATIVE (NEGATIVE) 03/09/20 04:51 Urine Nitrite NEGATIVE (NEGATIVE) 03/09/20 04:51 Urine Bilirubin NEGATIVE (NEGATIVE) 03/09/20 04:51 Urine Urobilinogen NEGATIVE mg/dL (<2.0) 03/09/20 04:51 Ur Leukocyte Esterase TRACE (NEGATIVE) H 03/09/20 04:51 Urine WBC (Auto) 6 /HPF 03/09/20 04:51 Urine RBC (Auto) 2 /HPF 03/09/20 04:51 Urine Bacteria (Auto) TRACE /HPF 03/09/20 04:51 Squamous Epi Cells Auto 14 /HPF 03/09/20 04:51 Urine Mucus (Auto) MANY /LPF 03/09/20 04:51 Urine Ascorbic Acid NEGATIVE (NEGATIVE) 03/09/20 04:51 SARS-CoV-2 (PCR) NEGATIVE (NEGATIVE) 03/09/20 10:00 Impressions: Abdomen MRI 03/09/20 06:11 IMPRESSION: Findings as above consistent with an acute appendicitis. Obstetrics Ultrasound 03/10/20 00:00 IMPRESSION: LIMITED OBSTETRICAL ULTRASOUND WITH MEASURED PARAMETERS DELINEATED ABOVE. Trimester of : First trimester - 0 to 13 weeks.
[2020-03-11 11:29] VITALS: BP 112/60
== END 2020-03-11 13:26 | disposition home or self-care (01) ==
LOC: ER 03:48 → EH 10:45 → 4N 14:36 → 2N 17:10
PROVIDERS: ADMIT Surgery; ATTEND Surgery
DX: O26.891 Other specified pregnancy related conditions, first trimester (principal); O99.611 Diseases of the digestive system complicating pregnancy, first trimester; K35.32 Acute appendicitis with perforation, localized peritonitis, and gangrene, without abscess; N99.89 Other postprocedural complications and disorders of genitourinary system; R33.9 Retention of urine, unspecified; O99.211 Obesity complicating pregnancy, first trimester; E66.9 Obesity, unspecified; Z3A.12 12 weeks gestation of pregnancy; Z03.818 Encounter for observation for suspected exposure to other biological agents ruled out
CPT/HCPCS: 96376; 99285; 96375; 96365; 36415 ×3; 84702; 83690; 85025 ×3; 87635; 80053; 81001; 88304 ×2; 74181; 76815; 99140; 00840; 44970; G0378 ×4; J2250; J1100; J3010; J2765; J2270 ×2; J2710; J1170; J2550; J2405 ×2; J7121 ×2; J7050 ×3; J2704; J2543 ×3; J0131 ×3; J3490; 840

== ENCOUNTER 2020-08-15 19:42 | Outpatient (CLI) | payer BC, MEDICAID ==
[2020-08-15 20:17] LABS: APPEARANCE,URINE CLEAR; BILIRUBIN,URINE NEGATIVE (NEGATIVE); COLOR,URINE YELLOW; GLUCOSE, URINE NEGATIVE (NEGATIVE); KETONES,URINE TRACE mg/dL (NEGATIVE); LEUKOCYTE ESTERASE,URINE NEGATIVE (NEGATIVE); NITRITE,URINE NEGATIVE (NEGATIVE); PROTEIN,URINE NEGATIVE (NEGATIVE); URINE SPECIFIC GRAVITY 1.015; UROBILINOGEN,URINE NEGATIVE mg/dL (<2.0)
--- NOTE | 2020-08-15 20:40 | Non Stress Test Report ---
Non Stress Test Datetime Report Generated by CPN: 08/15/2020 20:40 DEMOGRAPHIC EGA NST: 34.4 INDICATION Indication for Study (NST) Other: lc for srom MONITORING Monitor Explained: Monitor Explained; Test Explained; Patient Verbalized Understanding Time on Monitor: 08/15/2020 20:00 Time off Monitor: 08/15/2020 20:37 NST Duration: 37 NST INTERVENTIONS NST Interventions: PO Hydration; Reposition Patient Physician Notified NST: Dr Rodriguez BABY A: [id number] BABY A Movement : Present Contraction Frequency : irreg FHR Baseline : 140 Accelerations : 15X15 Decelerations : None Variability : Moderate 6-25bpm NST Review: Meets Criteria for Reactive NST NST Review and Verified By : Sid Baker RN NST Results: Reactive NST REPORT Report Trigger: Send Report
[2020-08-15 20:41] LABS: URINE AMPHETAMINES SCREEN NEGATIVE; URINE BARBITURATES SCREEN NEGATIVE; URINE BENZODIAZEPINES SCREEN NEGATIVE; URINE COCAINE SCREEN NEGATIVE; URINE MARIJUANA (THC) SCREEN NEGATIVE; URINE METHADONE SCREEN NEGATIVE; URINE PHENCYCLIDINE SCREEN NEGATIVE
== END 2020-08-15 20:42 | disposition home or self-care (01) ==
LOC: LC 19:42
PROVIDERS: ATTEND Obstetrics & Gynecology Gynecology
DX: O47.03 False labor before 37 completed weeks of gestation, third trimester (principal); Z3A.34 34 weeks gestation of pregnancy; Z02.83 Encounter for blood-alcohol and blood-drug test
CPT/HCPCS: 59025; 80307; 81001; 84112

== ENCOUNTER 2020-08-24 14:46 | Outpatient (CLI) | payer BC, MEDICAID ==
[2020-08-24 15:33] LABS: APPEARANCE,URINE CLOUDY; BILIRUBIN,URINE NEGATIVE (NEGATIVE); COLOR,URINE YELLOW; GLUCOSE, URINE NEGATIVE (NEGATIVE); KETONES,URINE 20 mg/dL (NEGATIVE); LEUKOCYTE ESTERASE,URINE SMALL (NEGATIVE); NITRITE,URINE NEGATIVE (NEGATIVE); PROTEIN,URINE 30 mg/dL (NEGATIVE); URINE SPECIFIC GRAVITY 1.019; UROBILINOGEN,URINE NEGATIVE mg/dL (<2.0)
[2020-08-24 16:00] LABS: URINE AMPHETAMINES SCREEN NEGATIVE; URINE BARBITURATES SCREEN NEGATIVE; URINE COCAINE SCREEN NEGATIVE; URINE MARIJUANA (THC) SCREEN NEGATIVE; URINE METHADONE SCREEN NEGATIVE; URINE PHENCYCLIDINE SCREEN NEGATIVE
[2020-08-24 16:03] LABS: URINE BENZODIAZEPINES SCREEN NEGATIVE
--- NOTE | 2020-08-24 17:51 | Non Stress Test Report ---
Non Stress Test Datetime Report Generated by CPN: 08/24/2020 17:50 DEMOGRAPHIC EGA NST: 35.6 INDICATION Indication for Study (NST) Other: eval for irregular contractions VITAL SIGNS Temperature - NST: 98.3 Pulse - NST: 88 RESP - NST: 18 NBPSYS NST: 118 NBPDIA NST: 80 URINE RESULTS Urine Protein, NST: Positive Urine Ketones - NST: Positive Urine Glucose - NST: Negative Urine Blood - NST: Negative MONITORING Monitor Explained: Monitor Explained; Test Explained; Patient Verbalized Understanding Time on Monitor: 08/24/2020 15:00 Time off Monitor: 08/24/2020 16:28 NST Duration: 88 NST INTERVENTIONS NST Interventions: PO Hydration Physician Notified NST: C Schroeder CNM BABY A: [id number] BABY A Movement : Present Contraction Frequency : 4-15 FHR Baseline : 145 Accelerations : 15X15 Decelerations : None Variability : Moderate 6-25bpm NST Review: Meets Criteria for Reactive NST NST Review and Verified By : Lesly Camp RNC NST Results: Reactive NST REPORT Report Trigger: Send Report
--- OUTSIDE RECORDS SUMMARY | 2020-08-26 14:37 | XMS REPORT ---
:1990 Author Organization [facility] Address [facility] [place] [address] [place] [id number] Care Team Providers Name Role Phone MD Allen Marte Attending Clinician Unavailable MD Santa Marte Attending Clinician Unavailable Kady Attending Clinician Unavailable Allergies, Adverse Reactions, Alerts This patient has no known allergies or adverse reactions. Medications This patient has no known medications. Problems This patient has no known problems. Procedures Procedure Date / Time Performed Performing Clinician Lola carter Vaginal ultrasound of 2020-03-16 09:59:00 uterus Urinalysis, manual test 2020-03-16 09:59:00 Hemoglobin A1C level 2020-03-16 09:59:00 [id number] 2020-03-16 09:59:00 Established patient office or other 2020-03-16 09:59:00 outpatient visit, typically 15 minutes Urine test 2020-03-01 11:46:00 Biopsy and scraping of the cervix 2019-11-18 10:28:00 using an endoscope OFFICE OUTPT EST15 MIN 2018-02-26 14:08:00 COLPOSCOPY CERVIX BX 2018-02-20 11:41:00 CERVIX\T\ENDOCRV CURTG URNLS DIP STICK/TABLET RGNT 2018-02-20 11:41:00 NON-AUTO W/O EMANUEL URINE TST VIS COLOR 2018-02-20 11:41:00 CMPRSN METHS PDIC COMPRE PREV MED REE/M EST PT 2018-01-28 15:13:00 18-39 URNLS DIP STICK/TABLET RGNT 2018-01-28 15:13:00 NON-AUTO W/O EMANUEL OFFICE OUTPT EST15 MIN 2017-07-11 12:29:00 SMR PRIM SRC WET MOUNT NFCT AGT 2017-07-11 12:29:00 URNLS DIP STICK/TABLET RGNT 2017-07-11 12:29:00 NON-AUTO W/O EMANUEL OFFICE OUTPT EST15 MIN 2017 12:59:00 OFFICE OUTPT EST15 MIN 2017-02-06 16:11:00 URNLS DIP STICK/TABLET RGNT 2017-02-06 16:11:00 NON-AUTO W/O EMANUEL Results Test Description Test Time Test Comments Text Results Atomic Results Result Comments Progesterone 2020-02-09 09:48:00 Test Item Value Reference Range Comments Progesterone (test code = 12.600 ng/mL Follic ular phase 0.1 - 2830) 0.9\X000d\\X0A\ Luteal phase 1.8 - 23.9\X000d\\X0A\ Ovulation phase 0.1 - 12.0\X000d\\X0A\ \X000d\\ X0A\ First trimester 11.0 - 44.3\X000d\\X0A\ Second trimester 25.4 - 83.3\X000d\\X0A\ Third trimester 58.7 - 214.0\X000d\\X0A \ Postmenopausal 0.0 - 0.1\X000d\\X0A\ Lipid [id number] 09:48:00 Test Item Value Reference Range Comments Triglycerides (test code = 2503) 90.000 mg/dL 0-149 Cholesterol, Total (test code = 2500) 184.000 mg/dL 100-199 LDL Cholesterol Calc (test code = 2502) 90.000 mg/dL 0-99 HDL Cholesterol (test code = 2501) 76.000 mg/dL >39 VLDL Cholesterol Neal (test code = 2504) 18.000 mg/dL 5-40 Vitamin D, 25-Hydroxy ([id number])2019-02-16 15:56:00 Test Item Value Reference Range Comments Vitamin D, 25-hydroxy (test 28.600 ng/mL 30.0-100.0 Paula min D deficiency has been code = 2962) defined by the I nstitute of\X000d\\X0A\ Medicine and an Endocrine Society practice guideline as a\X000d\\X0A\ level of serum 25-OH vitamin D less than 20 n g/mL (1,2).\X000d\\X0 A\ The Endocrine S ociety went on to further de fine vitamin D\X000d\\X0A\ insufficiency a s a level between 21 and 2 9 ng/mL (2).\X000d\\X0A\ 1. IOM (Institu te of Medicine). 2010. Dietary reference\X000d\ \X0A\ intakes for calcium and D. Haynes DC : The\X000d\\X0A\ National [facility] demies Press.\X000d\\X0 A\ 2. Jessica MF, B yaz NC, Harini CLARKE, et al.\X000d\\X0A\ Evaluation, treatment, and prevention o f vitamin D\X000d\\X0A\ deficiency: an Endocrine Society clinical practice\X000d\\ X0A\ guideline. J LETICIA. 2010; 96(7):1911-30.\X 000d\\X0A\ T3 [id number] 15:56:00 Test Item Value Reference Range Comments Free Thyroxine Index (test code = 3045) 1.800 1.2-4.9 T3 Uptake (test code = 2843) 26.000 % 24-39 Lipid [id number] 15:56:00 Test Item Value Reference Range Comments VLDL Cholesterol Neal (test code = 2504) 16.000 mg/dL 5-40 HDL Cholesterol (test code = 2501) 95.000 mg/dL >39 Triglycerides (test code = 2503) 82.000 mg/dL 0-149 LDL Cholesterol Calc (test code = 2502) 110.000 mg/dL 0-99 Cholesterol, Total (test code = 2500) 221.000 mg/dL 100-199 [id number] 15:56:00 Test Item Value Reference Range Comments TSH (test code = 2280) 0.881 uIU/mL 0.450-4.500 Thyroxine (T4)2019-02-16 15:56:00 Test Item Value Reference Range Comments Thyroxine (T4) (test code = 2864) 6.900 ug/dL 4.5-12.0 CMP14 (640010) [id number] 15:56:00 Test Item Value Reference Range Comments Egfr If Africn Am (test code = 3068) 142.000 mL/min/1.73 >59 Sodium, Serum (test code = 2337) 136.000 mmol/L 135-145 Creatinine, Serum (test code = 2330) 0.650 mg/dL 0.76-1.27 Globulin, Total (test code = 2333) 2.700 g/dL 1.5-4.5 ALT (SGPT) (test code = 2322) 14.000 IU/L 0-55 BUN (test code = 2325) 8.000 mg/dL 6-20 eGFR If NonAfricn Am (test code = 2332) 123.000 mL/min/1.73 >59 Chloride, Serum (test code = 2329) 100.000 mmol/L 97-108 Carbon Dioxide, Total (test code = 2328) 20.000 mmol/L 20-32 Protein, Total, Serum (test code = 2336) 7.500 g/dL 6.0-8.5 A/G Ratio (test code = 2319) 1.800 1.1-2.5 Glucose, Serum (test code = 2334) 85.000 mg/dL 65-99 Potassium, Serum (test code = 2335) 4.300 mmol/L 3.5-5.2 AST (SGOT) (test code = 2323) 19.000 IU/L 0-40 BUN/Creatinine Ratio (test code = 2326) 12.000 8-19 Bilirubin, Total (test code = 2324) 0.300 mg/dL 0.0-1.2 Calcium, Serum (test code = 2327) 9.600 mg/dL 8.7-10.2 Alkaline Phosphatase, S (test code = 81.000 IU/L 25-150 2321) Albumin, Serum (test code = 2320) 4.800 g/dL 3.5-5.5 Thyroid Peroxidase (TPO) [id number] 15:56:00 Test Item Value Reference Range Comments Thyroid Peroxidase (TPO) Ab (test code = 2861) 24.000 IU/mL 0 -34 CBC (357541) [id number] 15:56:00 Test Item Value Reference Range Comments RBC (test code = 2367) 4.080 x10E6/uL 4.10-5.60 Basos (test code = 2347) 0.000 % 0-3 Immature Grans (Abs) (test code = 2354) 0.000 x10E3/uL 0.0-0.1 Neutrophils (Absolute) (test code = 2364) 5.500 x10E3/uL 1.8-7. 8 Neutrophils (test code = 2363) 69.000 % 40-74 Lymphs (Absolute) (test code = 2357) 1.500 x10E3/uL 0.7-4.5 MCH (test code = 2358) 31.900 pg 27.0-34.0 RDW (test code = 2368) 13.500 % 11.7-15.0 Hemoglobin (test code = 2352) 13.000 g/dL 12.5-17.0 Platelets (test code = 2366) 371.000 x10E3/uL 140-415 MCHC (test code = 2359) 35.200 g/dL 32.0-36.0 Eos (Absolute) (test code = 2349) 0.400 x10E3/uL 0.0-0.4 Hematocrit (test code = 2350) 36.900 % 36.0-50.0 Baso (Absolute) (test code = 2346) 0.000 x10E3/uL 0.0-0.2 Immature Granulocytes (test code = 2355) 0.000 % 0-2 Monocytes (test code = 2361) 7.000 % 4-13 Eos (test code = 2348) 5.000 % 0-7 Lymphs (test code = 2356) 19.000 % 14-46 Monocytes(Absolute) (test code = 2362) 0.500 x10E3/uL 0.1-1.0 WBC (test code = 2369) 8.000 x10E3/uL 4.0-10.5 MCV (test code = 2360) 90.000 fL 80-98 Assessments Condition Name Status Diagnosis Date Treating Clinici an Encounter for supervision of normal Active , unspecified, unspecified trimester Encounter for other specified Active screening Less than 8 weeks gestation of Active Encounter for test, result Active positive Personal history of other diseases of the Active female genital tract Personal history of other diseases of the Active female genital tract Personal History of Other Genital System and Active Obstetric Disorders Personal History of Other Genital System and Active Obstetric Disorders Atypical squamous cells of undetermined Active significance on cytologic smear of cervix (ASC-US) Atypical squamous cells of undetermined Active significance on cytologic smear of cervix (ASC-US) Atypical squamous cells of undetermined Active significance on cytologic smear of cervix (ASC-US) Abnormal Weight Gain Active Family hx of other endocrine \T\ metabolic Active dx Abnormal Weight Gain Active Family hx of other endocrine \T\ metabolic Active dx Abnormal Weight Gain Active Family hx of other endocrine \T\ metabolic Active dx Body mass index (BMI) 30.0-30.9, adult Active Body mass index (BMI) 30.0-30.9, adult Active Body mass index (BMI) 30.0-30.9, adult Active Obesity, unspecified Active Abnormal weight gain Active Family history of other endocrine, Active nutritional and metabolic diseases Obesity, unspecified Active Abnormal weight gain Active Family history of other endocrine, Active nutritional and metabolic diseases Obesity, unspecified Active Abnormal weight gain Active Family history of other endocrine, Active nutritional and metabolic diseases Mild cervical dysplasia Active Mild cervical dysplasia Active Mild cervical dysplasia Active Personal History of Hazards to Health Not Active Elsewhere Classified Personal History of Hazards to Health Not Active Elsewhere Classified Personal History of Hazards to Health Not Active Elsewhere Classified Cervical high risk human papillomavirus Active (HPV) DNA test positive Low grade squamous intraepithelial lesion on Active cytologic smear of cervix (LGSIL) Encounter for test, result Active negative Low grade squamous intraepithelial lesion on Active cytologic smear of cervix (LGSIL) Cervical high risk human papillomavirus Active (HPV) DNA test positive Encounter for test, result Active negative Low grade squamous intraepithelial lesion on Active cytologic smear of cervix (LGSIL) Cervical high risk human papillomavirus Active (HPV) DNA test positive Encounter for test, result Active negative Mild cervical dysplasia Active Low grade squamous intraepithelial lesion on Active cytologic smear of cervix (LGSIL) Encounter for test, result Active negative Cervical high risk human papillomavirus Active (HPV) DNA test positive Other seasonal allergic rhinitis Active Other seasonal allergic rhinitis Active Other seasonal allergic rhinitis Active Contact with and (suspected) exposure to Active potentially hazardous body fluids Contact with and (suspected) exposure to Active potentially hazardous body fluids Contact with and (suspected) exposure to Active potentially hazardous body fluids Contact with and (suspected) exposure to Active potentially hazardous body fluids Other seasonal allergic rhinitis Active Candidiasis, unspecified Active Candidiasis, unspecified Active Candidiasis, unspecified Active Acute Stress Reaction Not Otherwise Active Specified Acute Stress Reaction Not Otherwise Active Specified Acute Stress Reaction Not Otherwise Active Specified Acute stress reaction Active Acute stress reaction Active Acute stress reaction Active Other specified noninflammatory disorders of Active vulva and perineum Other specified noninflammatory disorders of Active vulva and perineum Other specified noninflammatory disorders of Active vulva and perineum Other specified noninflammatory disorders of Active vulva and perineum Candidiasis, unspecified Active Acute stress reaction Active Urinary Tract Infection Not Otherwise Active Specified Dysuria Active Urinary tract infection, site not specified Active Dysuria Active Urinary Tract Infection Not Otherwise Active Specified Urinary tract infection, site not specified Active Dysuria Active Dysuria Active Urinary Tract Infection Not Otherwise Active Specified Dysuria Active Urinary tract infection, site not specified Active Dysuria Active 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 intermediate (current) use of opiate analgesic Active Urinary tract infection, site not specified Active Dysuria Active Laboratory exam ordered as part of a routine Active general medical exam Special Screening Examination for Malignant Active Neoplasm of Cervix Other depressive episodes Active Encounter for general adult medical Active examination without abnormal findings Other depressive episodes Active Encounter for general adult medical Active examination without abnormal findings Laboratory exam ordered as part of a routine Active general medical exam Special Screening Examination for Malignant Active Neoplasm of Cervix Other depressive episodes Active Encounter for general adult medical Active examination without abnormal findings Laboratory exam ordered as part of a routine Active general medical exam Special Screening Examination for Malignant Active Neoplasm of Cervix Other Prophylactic Vaccination and Active Inoculation Against Viral Diseases Encounter for immunization Active Encounter for immunization Active Other Prophylactic Vaccination and Active Inoculation Against Viral Diseases Encounter for immunization Active Other Prophylactic Vaccination and Active Inoculation Against Viral Diseases Major depressive disorder, single episode, Active unspecified Depressive Disorder Not Elsewhere Classified Active Major depressive disorder, single episode, Active unspecified Major depressive disorder, single episode, Active unspecified Depressive Disorder Not Elsewhere Classified Active Major depressive disorder, single episode, Active unspecified Depressive Disorder Not Elsewhere Classified Active Encounter for gynecological examination Active (general) (routine) without abnormal findings Routine Gynecological Examination Active Encounter for gynecological examination Active (general) (routine) without abnormal findings Encounter for gynecological examination Active (general) (routine) without abnormal findings Routine Gynecological Examination Active Encounter for gynecological examination Active (general) (routine) without abnormal findings Routine Gynecological Examination Active Encounter for screening for malignant Active neoplasm of cervix Encounter for screening for malignant Active neoplasm of cervix Encounter for screening for malignant Active neoplasm of cervix Encounter for screening for malignant Active neoplasm of cervix Encounter for screening for other infectious Active and parasitic diseases Encounter for screening for infectious and Active parasitic diseases, unspecified Encounter for screening for other infectious Active and parasitic diseases Encounter for screening for infectious and Active parasitic diseases, unspecified Encounter for screening for other infectious Active and parasitic diseases Encounter for screening for infectious and Active parasitic diseases, unspecified Special Screening Examination for Diabetes Active Mellitus Abnormal Loss of Weight Active Encounter for screening for diabetes Active mellitus Special Screening Examination for Diabetes Active Mellitus Abnormal Loss of Weight Active Encounter for screening for diabetes Active mellitus Special Screening Examination for Diabetes Active Mellitus Abnormal Loss of Weight Active Encounter for screening for diabetes Active mellitus Panic Disorder withou Agoraphobia Active Generalized Anxiety Disorder Active Special Screening Examination for Thyroid Active Disorders Panic disorder [episodic paroxysmal anxiety] Active without agoraphobia Encounter for screening for other suspected Active endocrine disorder Panic disorder [episodic paroxysmal anxiety] Active without agoraphobia Encounter for screening for other suspected Active endocrine disorder Panic Disorder withou Agoraphobia Active Generalized Anxiety Disorder Active Special Screening Examination for Thyroid Active Disorders Panic disorder [episodic paroxysmal anxiety] Active without agoraphobia Encounter for screening for other suspected Active endocrine disorder Panic Disorder withou Agoraphobia Active Generalized Anxiety Disorder Active Special Screening Examination for Thyroid Active Disorders Generalized anxiety disorder Active Generalized anxiety disorder Active Generalized anxiety disorder Active Other halfway (current) drug therapy Active Anxiety State Not Otherwise Specified Active Monitor Meds Active Other buttermaker continuous churn (current) drug therapy Active Other halfway (current) drug therapy Active Anxiety State Not Otherwise Specified Active Monitor Meds Active Other halfway (current) drug therapy Active Anxiety State Not Otherwise Specified Active Monitor Meds Active Lumbago lower back pain Active Eating Disorder Not Elsewhere Classified Active Low back pain Active Other eating disorders Active Lumbago lower back pain Active Low back pain Active Other eating disorders Active Eating Disorder Not Elsewhere Classified Active Low back pain Active Other eating disorders Active Lumbago lower back pain Active Eating Disorder Not Elsewhere Classified Active Unspecified Insomnia Active Vitamin D Deficiency Not Otherwise Specified Active Vitamin D deficiency, unspecified Active Unspecified Insomnia Active Vitamin D Deficiency Not Otherwise Specified Active Vitamin D deficiency, unspecified Active Vitamin D deficiency, unspecified Active Unspecified Insomnia Active Vitamin D Deficiency Not Otherwise Specified Active Hyperthyroidism Active Thyrotoxicosis, unspecified without Active thyrotoxic crisis or storm Thyrotoxicosis, unspecified without Active thyrotoxic crisis or storm Thyrotoxicosis, unspecified without Active thyrotoxic crisis or storm Hyperthyroidism Active Hyperthyroidism Active Anxiety disorder, unspecified Active Abnormal weight loss Active Anxiety disorder, unspecified Active Insomnia, unspecified Active Encounter for screening for lipoid disorders Active Abnormal weight loss Active Anxiety disorder, unspecified Active Insomnia, unspecified Active Encounter for screening for lipoid disorders Active Abnormal weight loss Active Anxiety disorder, unspecified Active Insomnia, unspecified Active Encounter for screening for lipoid disorders Active Encounters Start End Encounter Admission Attending Care Care Encounter Date/Time Date/Time Type Type Clinicians Facility Department ID 2020-03-04 2020-03-04 E 1 Allen Marte [facility] [id number] 00:05:00 02:56:00 Allen Marte 2020-02-09 2020-02-09 Outpatient RED HillmanP Kady [id number] 00:00:00 00:00:00 [facility] 2020-01-26 2020-01-26 Outpatient Kady KMP [place] [id number] 00:00:00 00:00:00 [facility] 2019-09-28 2019-09-28 Outpatient KadyREDP Kady [id number] 00:00:00 00:00:00 [facility] 2018-01-14 2018-01-14 Outpatient [place] KMP Kady [id number] 00:00:00 00:00:00 [facility] 2018-01-07 2018-01-07 Outpatient [place], [facility]MP [place] [id number] 00:00:00 00:00:00 [facility] 2017-12-09 2017-12-09 Outpatient Kady, KMP Kady [id number] 00:00:00 00:00:00 [facility] 2017-06-05 2017-06-05 Outpatient Kady [facility] [place] [id number] 00:00:00 00:00:00 [facility] 2017-05-15 2017-05-15 Outpatient [place] [facility] [place] [id number] 00:00:00 00:00:00 [facility] 2017-01-08 2017-01-08 Outpatient KMP [place] [id number] 00:00:00 00:00:00 Medical Payers Payer Name Policy Type Policy Number Effective Date Expiration D ate Social History This patient has no known social history. Vital Signs This patient has no known vital signs.
== END 2020-08-24 16:47 | disposition home or self-care (01) ==
LOC: LC 14:46
PROVIDERS: ATTEND Obstetrics & Gynecology
DX: O47.03 False labor before 37 completed weeks of gestation, third trimester (principal); Z3A.35 35 weeks gestation of pregnancy; Z02.83 Encounter for blood-alcohol and blood-drug test
CPT/HCPCS: 59025; 80307; 81001

== ENCOUNTER 2020-09-20 15:11 | Outpatient (CLI) | payer BC, MEDICAID ==
[2020-09-20 16:01] LABS: APPEARANCE,URINE CLEAR; BILIRUBIN,URINE NEGATIVE (NEGATIVE); COLOR,URINE STRAW; GLUCOSE, URINE NEGATIVE (NEGATIVE); KETONES,URINE NEGATIVE (NEGATIVE); LEUKOCYTE ESTERASE,URINE NEGATIVE (NEGATIVE); NITRITE,URINE NEGATIVE (NEGATIVE); PROTEIN,URINE NEGATIVE (NEGATIVE); URINE SPECIFIC GRAVITY 1.005; UROBILINOGEN,URINE NEGATIVE mg/dL (<2.0)
[2020-09-20 16:23] LABS: URINE AMPHETAMINES SCREEN NEGATIVE; URINE BARBITURATES SCREEN NEGATIVE; URINE BENZODIAZEPINES SCREEN NEGATIVE; URINE COCAINE SCREEN NEGATIVE; URINE MARIJUANA (THC) SCREEN NEGATIVE; URINE METHADONE SCREEN NEGATIVE; URINE PHENCYCLIDINE SCREEN NEGATIVE
[2020-09-20 17:28] LABS: UR PRO/CREAT RATIO RESULT 0.6 mg/mg (0.0-0.2); URINE CREATININE 23.4 mg/dL (16-327); URINE PROTEIN 13.6 mg/dL (<12)
[2020-09-20 18:00] LABS: HEMOGLOBIN 11.7 g/dL (12.0-15.5); MEAN CORPUSCULAR HEMOGLOBIN 29.6 pg (27.0-33.4); MEAN CORPUSCULAR HGB CONC 33.3 g/dL (32.0-36.0); MEAN CORPUSCULAR VOLUME 89 fl (80-97); PLATELET COUNT 156 10^3/uL (150-450); RED BLOOD COUNT 3.93 10^6/uL (3.72-5.28); RED CELL DISTRIBUTION WIDTH 15.5 % (11.5-14.0); WHITE BLOOD COUNT 8.2 10^3/uL (4.0-10.5)
[2020-09-20 18:19] LABS: ALBUMIN 3.3 g/dL (3.5-5.0); ALKALINE PHOSPHATASE 157 U/L (38-126); ANION GAP 8 (5-19); ASPARTATE AMINO TRANSFERASE 22 U/L (14-36); BILIRUBIN,TOTAL 0.2 mg/dL (0.2-1.3); BLOOD UREA NITROGEN 9 mg/dL (7-20); CALCIUM 9.5 mg/dL (8.4-10.2); CARBON DIOXIDE 20 mmol/L (22-30); CHLORIDE 106 mmol/L (98-107); GLUCOSE 114 mg/dL (75-110); POTASSIUM 4.1 mmol/L (3.6-5.0); TOTAL PROTEIN 6.3 g/dL (6.3-8.2); URIC ACID 4.6 mg/dL (2.5-6.2)
--- NOTE | 2020-09-20 18:45 | Non Stress Test Report ---
Non Stress Test Datetime Report Generated by CPN: 09/20/2020 18:45 DEMOGRAPHIC Test Number: 3 EGA NST: 39.5 INDICATION Indication for Study (NST) Other: Pre-E workup from [facility] VITAL SIGNS Temperature - NST: 97.9 Pulse - NST: 93 RESP - NST: 17 NBPSYS NST: 132 NBPDIA NST: 81 MONITORING Monitor Explained: Monitor Explained; Test Explained; Patient Verbalized Understanding Time on Monitor: 09/20/2020 15:26 Time off Monitor: 09/20/2020 16:51 NST Duration: 85 NST INTERVENTIONS NST Interventions: None Physician Notified NST: Dr. Segal BABY A: [id number] BABY A Movement : Present Contraction Frequency : Irregular FHR Baseline : 130 Accelerations : 15X15 Decelerations : None Variability : Moderate 6-25bpm NST Review: Meets Criteria for Reactive NST NST Review and Verified By : GUMARO Toribio Results: Reactive NST REPORT Report Trigger: Send Report
== END 2020-09-20 18:43 | disposition home or self-care (01) ==
LOC: LC 15:11
PROVIDERS: ATTEND Obstetrics & Gynecology
DX: O16.3 Unspecified maternal hypertension, third trimester (principal); Z3A.39 39 weeks gestation of pregnancy
CPT/HCPCS: 36415; 59025; 80053; 80307; 81005; 82570; 83615; 84156; 84550; 85027

== ENCOUNTER 2020-09-21 18:11 | Outpatient (CLI) | payer BC, MEDICAID ==
[2020-09-21 18:41] LABS: APPEARANCE,URINE SLIGHTLY-CLOUDY; BILIRUBIN,URINE NEGATIVE (NEGATIVE); COLOR,URINE YELLOW; GLUCOSE, URINE NEGATIVE (NEGATIVE); KETONES,URINE 20 mg/dL (NEGATIVE); LEUKOCYTE ESTERASE,URINE TRACE (NEGATIVE); NITRITE,URINE NEGATIVE (NEGATIVE); PROTEIN,URINE 30 mg/dL (NEGATIVE); URINE SPECIFIC GRAVITY 1.016; UROBILINOGEN,URINE NEGATIVE mg/dL (<2.0)
[2020-09-21 19:00] LABS: URINE AMPHETAMINES SCREEN NEGATIVE; URINE BARBITURATES SCREEN NEGATIVE; URINE BENZODIAZEPINES SCREEN NEGATIVE; URINE COCAINE SCREEN NEGATIVE; URINE MARIJUANA (THC) SCREEN NEGATIVE; URINE METHADONE SCREEN NEGATIVE; URINE PHENCYCLIDINE SCREEN NEGATIVE
[2020-09-21 19:01] LABS: 24 HOUR URINE PROTEIN RESULT 99 mg/day (42-225); URINE PROTEIN 7.6 mg/dL (<12)
== END 2020-09-21 19:39 | disposition home or self-care (01) ==
LOC: LC 18:11
PROVIDERS: ATTEND Obstetrics & Gynecology Gynecology
DX: O13.3 Gestational [pregnancy-induced] hypertension without significant proteinuria, third trimester (principal); Z3A.39 39 weeks gestation of pregnancy
CPT/HCPCS: 59025; 80307; 81001; 84156

== ENCOUNTER 2020-09-23 05:28 | Inpatient (IN) | payer BC, MEDICAID ==
[2020-09-23] MEDS ORDERED: OXYTOCIN/0.9 % SODIUM CHLORIDE 30 UNIT/500 ML RTUINJ IV PRN (05:40)
[2020-09-23] MEDS ORDERED: DINOPROSTONE 10 MG VAGINAL INSERT.SR PV PRN (05:40)
[2020-09-23] MEDS ORDERED: RINGERS SOLUTION,LACTATED 1,000 ML IV ONE (05:41)
[2020-09-23] MEDS ORDERED: RINGERS SOLUTION,LACTATED 1,000 ML IV PRN (05:41)
[2020-09-23] MEDS ORDERED: OXYTOCIN/0.9 % SODIUM CHLORIDE 30 UNIT/500 ML RTUINJ ONE (06:27)
[2020-09-23] MEDS ORDERED: DINOPROSTONE 10 MG VAGINAL INSERT.SR ONE (06:27)
[2020-09-23] MEDS ORDERED: OXYTOCIN 10 UNIT/ML VIAL ONE (06:27)
[2020-09-23] MEDS ORDERED: LIDOCAINE 1% INJ-PF (10 MG/ML) 30 ML SDV ONE (06:27)
[2020-09-23] MEDS ORDERED: MISOPROSTOL 0.2 MG TABLET ONE (06:27)
[2020-09-23 06:28] LABS: ABSOLUTE EOSINOPHILS # (AUTO) 0.2 10^3/uL (0.0-0.6); ABSOLUTE LYMPHOCYTES (AUTO) 1.5 10^3/uL (0.5-4.7); ABSOLUTE MONOCYTES (AUTO) 0.6 10^3/uL (0.1-1.4); ABSOLUTE NEUT (AUTO) 5.4 10^3/uL (1.7-8.2); BASOPHILS % (AUTO) 0.4 % (0-2); HEMATOCRIT 34.8 % (36.0-47.0); HEMOGLOBIN 11.7 g/dL (12.0-15.5); MEAN CORPUSCULAR HEMOGLOBIN 29.6 pg (27.0-33.4); MEAN CORPUSCULAR HGB CONC 33.5 g/dL (32.0-36.0); MEAN CORPUSCULAR VOLUME 88 fl (80-97); MONOCYTES % (AUTO) 7.8 % (3-13); PLATELET COUNT 147 10^3/uL (150-450); RED BLOOD COUNT 3.95 10^6/uL (3.72-5.28); RED CELL DISTRIBUTION WIDTH 15.6 % (11.5-14.0); SEGMENTED NEUTROPHILS % (AUTO) 69.8 % (42-78); TOTAL CELLS COUNTED % (AUTO) 100 %; WHITE BLOOD COUNT 7.7 10^3/uL (4.0-10.5)
[2020-09-23 06:30] LABS: APPEARANCE,URINE SLIGHTLY-CLOUDY; BILIRUBIN,URINE NEGATIVE (NEGATIVE); COLOR,URINE YELLOW; GLUCOSE, URINE NEGATIVE (NEGATIVE); KETONES,URINE TRACE mg/dL (NEGATIVE); LEUKOCYTE ESTERASE,URINE NEGATIVE (NEGATIVE); NITRITE,URINE NEGATIVE (NEGATIVE); PROTEIN,URINE NEGATIVE (NEGATIVE); URINE SPECIFIC GRAVITY 1.014; UROBILINOGEN,URINE NEGATIVE mg/dL (<2.0)
[2020-09-23 06:41] LABS: URINE AMPHETAMINES SCREEN NEGATIVE; URINE BARBITURATES SCREEN NEGATIVE; URINE BENZODIAZEPINES SCREEN NEGATIVE; URINE COCAINE SCREEN NEGATIVE; URINE MARIJUANA (THC) SCREEN NEGATIVE; URINE METHADONE SCREEN NEGATIVE; URINE PHENCYCLIDINE SCREEN NEGATIVE
--- NOTE | 2020-09-23 07:18 | Admission Physical ---
Datetime Report Generated by CPN: 09/23/2020 07:17 CURRENT ADMISSION Chief Complaint: Scheduled Induction of Labor Indication for Induction: Gestational HTN Admit Impression : Term, Intrauterine Admit Plan: Admit to Unit; Initiate Labor Induction Protocol ALLERGIES Medication Allergies: No Medication Allergies: No Known Allergies (09/23/2020) Latex: No Latex Allergies Food Allergies: none Environmental Allergies: none OBSTETRICAL HISTORY EDC: 09/22/2020 00:00 : 1 Para: 0 Term: 0 : 0 SAB: 0 IAB: 0 Ectopic: 0 Livin Cesareans: 0 VBACs: 0 Multiple Births: 0 Gestational Diabetes: No Rh Sensitization: No Incompetent Cervix: No LAN: No Infertility: No ART Treatment: No Uterine Anomaly: No IUGR: No Hx Previous C/S: No Macrosomia: No Hx Loss/Stillborn: No PIH: Yes Hx : No Placenta Previa/Abruption: No Depression/PP Depression: No PTL/PROM: No Post Hemorrhage: No Current Procedures: Ultrasound; NST Obstetrical History Comments: G1- current- Gestional HTN SEE RECORDS Alcohol: No Marijuana : No Cocaine: No Other Illicit Drugs: No Cigarettes: Never Smoker. 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 Surgery: No Heart Disease: No Hosp/Surgery: Yes Autoimmune Disorder: No Anesthetic Complications: No Kidney Disease: No Abnormal Pap Smear: No Neuro/Epilepsy: No Psychiatric Disorders: No Other Medical Diseases: No Hepatitis/Liver Disease: No Significant Family History: No Varicosities/Phlebitis: No Trauma/Violence : No Thyroid Dysfunction: No Medical History Comments: Appendectomy 03/14/2020 INFECTIOUS HISTORY Gonorrhea: No Genital Herpes: No Chlamydia: No Tuberculosis: No Syphilis: No Hepatitis: No HIV/AIDS Exposure: No Rash or Viral Illness: No HPV: Yes Infectious History Comments: [facility]US HPV 2019 PHYSICAL EXAM General: Normal HEENT: Normal Neurologic: Normal Thyroid: Normal Heart: Normal Lungs: Normal Breast: Deferred Back: Normal Abdomen: Normal Genitourinary Exam: Normal Extremities: Normal DTRs: Normal Pelvic Type: Adequate Vital Signs: Reviewed VAGINAL EXAM Dilatation: 0 Effacement: 0 Station: -2 MEMBRANES Pooling: Negative Membranes: Intact FETUS A EGA: 40.1 Monitoring: External US FHR- Baseline: 120 Variability: Moderate 6-25bpm Decelerations: None FHR Category: Category I Presentation: Vertex Admit Comment: admit for cervadil PLANS FOR LABOR AND DELIVERY Labor and Delivery: None Pain Management: Epidural Feeding Preference: Breast Benefit of Breast Feed Discussed: Yes Circumcision: N/A INFORMED CONSENT Signature: with User ID: [email or web address]
--- NOTE | 2020-09-23 10:39 | L&D Progress Notes ---
PROGRESS NOTES Datetime Report Generated by CPN: 09/23/2020 10:39 PROGRESS NOTE Comment: cervidil placed at 0638 this am. cvx cked at 0830. possibly fingertip/thick/hi/post/soft. Reactive NST. Not feeling anything now. may need to switch to cytotec VAGINAL EXAM Dilatation: 0 Effacement: 0 Station: -2 LAST VAGINAL EXAM-NURSING Nursing Exam Dilitation: 0.0 Nursing Exam Station: high Nursing Exam Contractions: Pt relates "I've felt one" contraction since arrival. MEMBRANES Pooling: Negative Membranes: Intact FETUS A : 40.0 Presentation: Vertex SIGNATURE SIGNATURE: [id number];[id number];[id number] Signature: Electronically signed by Alisha Roberto MD ([facility]) on 09/23/2020 at 10:38 with User ID: [email or web address]
--- NOTE | 2020-09-23 10:44 | L&D Progress Notes ---
PROGRESS NOTES Datetime Report Generated by CPN: 09/23/2020 10:44 PROGRESS NOTE Comment: EFW on recent US 7#16oz. continue with IOL VAGINAL EXAM Dilatation: 0 Effacement: 0 Station: -2 LAST VAGINAL EXAM-NURSING Nursing Exam Dilitation: 0.0 Nursing Exam Station: high Nursing Exam Contractions: Pt relates "I've felt one" contraction since arrival. MEMBRANES Pooling: Negative Membranes: Intact FETUS A : 40.0 Presentation: Vertex SIGNATURE SIGNATURE: [id number];[id number];[id number] Signature: with User ID: [email or web address]
--- NOTE | 2020-09-23 21:14 | L&D Progress Notes ---
PROGRESS NOTES Datetime Report Generated by CPN: 09/23/2020 21:14 PROGRESS NOTE Comment: Very posterior. ft/soft/25/very high. Will try to augment contractions with pitocin. then when able to reach cervix better will try cooks catheter. Reassuring FWB. Reviewed plan of care with patient. VAGINAL EXAM Dilatation: 0 Effacement: 0 Station: -2 LAST VAGINAL EXAM-NURSING Nursing Exam Dilitation: 0.5 Nursing Exam Station: high Nursing Exam Contractions: Pt relates "I've felt one" contraction since arrival. MEMBRANES Pooling: Negative Membranes: Intact FETUS A : 40.0 Presentation: Vertex SIGNATURE SIGNATURE: 10,[id number];14,[id number];13,[id number] Signature: with User ID: [email or web address]
[2020-09-24] MEDS ORDERED: FENTANYL/BUPIVACAINE/NS/PF 300 MCG/150 ML RTUINJ EPI ONE (03:43)
[2020-09-24] MEDS ORDERED: EPHEDRINE SULFATE INJ 50 MG/1 ML AMPULE ONE (03:43)
[2020-09-24] MEDS ORDERED: ROPIVACAINE HCL 0.2% INJ/PF (2 MG/ML) 20 ML SDV ONE (03:44)
[2020-09-24 04:25] LABS: HEMATOCRIT 33.3 % (36.0-47.0); HEMOGLOBIN 11.2 g/dL (12.0-15.5); MEAN CORPUSCULAR HGB CONC 33.6 g/dL (32.0-36.0); MEAN CORPUSCULAR VOLUME 89 fl (80-97); PLATELET COUNT 134 10^3/uL (150-450); RED BLOOD COUNT 3.72 10^6/uL (3.72-5.28); RED CELL DISTRIBUTION WIDTH 15.3 % (11.5-14.0); WHITE BLOOD COUNT 10.1 10^3/uL (4.0-10.5)
[2020-09-24] MEDS ORDERED: ONDANSETRON HCL INJ/PF 4 MG/2 ML SDV ONE (08:49)
[2020-09-24] MEDS ORDERED: ONDANSETRON HCL INJ/PF 4 MG/2 ML SDV IV ONE (08:51)
[2020-09-24] MEDS ORDERED: MEASLES,MUMPS&RUBELLA VACC/PF 0.5 ML VIAL SUBCUT PRN (11:51)
[2020-09-24] MEDS ORDERED: ACETAMINOPHEN 325 MG TABLET PO PRN (11:51)
[2020-09-24] MEDS ORDERED: ACETAMINOPHEN 650 MG SUPP.RECT PR PRN (11:51)
[2020-09-24] MEDS ORDERED: BENZOCAINE/MENTHOL AEROSOL SPRAY 56 ML TOP PRN (11:51)
[2020-09-24] MEDS ORDERED: PROMETHAZINE HCL 25 MG SUPP.RECT PR PRN (11:51)
[2020-09-24] MEDS ORDERED: GLYCERIN/WITCH HAZEL LEAF 1 EACH MED..WIPE TP PRN (11:51)
[2020-09-24] MEDS ORDERED: PROMETHAZINE HCL 25 MG TABLET PO PRN (11:51)
[2020-09-24] MEDS ORDERED: PROMETHAZINE HCL INJ 25 MG/1 ML VIAL IV PRN (11:51)
[2020-09-24] MEDS ORDERED: PSEUDOEPHEDRINE HCL 30 MG TABLET PO PRN (11:51)
[2020-09-24] MEDS ORDERED: DIPHENHYDRAMINE HCL 25 MG CAPSULE PO PRN (11:51)
[2020-09-24] MEDS ORDERED: OXYTOCIN/0.9 % SODIUM CHLORIDE 30 UNIT/500 ML RTUINJ IV PRN (11:51)
[2020-09-24] MEDS ORDERED: NA PHOS,M-B/NA PHOS,DI-BA (ADULT) 133 ML ENEMA PR PRN (11:51)
[2020-09-24] MEDS ORDERED: DIPH/PERTUSS(ACELL)/TETANUS VAC/PF 0.5 ML SYR (>=10YO) IM PRN (11:51)
[2020-09-24] MEDS ORDERED: ACETAMINOPHEN WITH CODEINE #3 TABLET PO PRN ×2 (11:51)
[2020-09-24] MEDS ORDERED: MAGNESIUM HYDROXIDE SUSP 30 ML UDCUP PO PRN (11:51)
[2020-09-24] MEDS ORDERED: DIBUCAINE 1% OINTMENT 28 GM TP PRN (11:51)
[2020-09-24] MEDS ORDERED: ZOLPIDEM TARTRATE 5 MG TABLET PO PRN (11:51)
--- NOTE | 2020-09-24 12:48 | Birth Certificate Data ---
Cert Data Datetime Report Generated by CPN: 09/24/2020 12:48 CERTIFICATE DATA Delivery Provider: Bethany Segal MD (08/15/2020 20:06:Eve Castillo RN) 47a. Care: No (08/15/2020 20:06:Shahla Baker RN) 47b. Date of First Visit: 03/17/2020 00:00 (08/15/2020 20:06:Shahla Baker RN) 47c. Date of Last Visit: 09/22/2020 00:00 (08/15/2020 20:06:Alicia Duran RN) 47d. Number of Visits: 10 (08/15/2020 20:06:Alicia Duran RN) 48a. Number of Prev Live Births: 0 (08/15/2020 20:06:Shahla Baker RN) 48b. Now Livin (08/15/2020 20:06:Shahla Baker RN) 48c. Live Births Now : 0 (08/15/2020 20:06:QS system process) 48e. Losses: 0 (08/15/2020 20:06:Shahla Baker RN) RISK FACTORS IN THIS 49a. Diabetes: No (08/15/2020 20:06:Alicia Duran RN) 49b. Hypertension: Yes (08/15/2020 20:06:Alicia Duran RN) Type of Hypertension: Gestational (PIH, Pre-eclampsia) (08/15/2020 20:06:Alicia Duran RN) 49c. Previous Births: 0 (08/15/2020 20:06:Shahla Baker RN) 49d. Stillborns: No (08/15/2020 20:06:Alicia Duran RN) 49d. IUGR: No (08/15/2020 20:06:Alicia Duran RN) 49e. Infertility Treatment: No (08/15/2020 20:06:Alicia Duran RN) 49f. Previous Cesareans: 0 (08/15/2020 20:06:Shahla Baker RN) Mother's Height 50b. Height Inches: 64 (09/23/2020 06:53:QS system process) Mother's Weight 51a. Pre- Weight (lbs): 205 (08/15/2020 20:06:Shahla Baker RN) 51b. Weight at Delivery (lbs): 218 (09/23/2020 06:53:QS system process) 52. Dt Last Normal Menses Began: 12/17/2019 00:00 (08/15/2020 20:06:Shahla Baker RN) Infections Present/Treated 53a. Gonorrhea: No (08/15/2020 20:06:Alicia Duran RN) Results this Hospital Visit : Negative (08/15/2020 20:06:Shahla Baker RN) 53b. Syphilis: No (08/15/2020 20:06:Alicia Duran RN) Results this Hospital Visit: NONREACTIVE (09/23/2020 06:04:QS system process) 53c. Chlamydia: No (08/15/2020 20:06:Alicia Duran RN) Results this Hospital Visit: Negative (08/15/2020 20:06:Shahla Baker RN) 53d. Hepatitis B: No (08/15/2020 20:06:Alicia Duran RN) Results this Hospital Visit: Negative (08/15/2020 20:06:Shahla Baker RN) 53e. Hepatitis C: Negative (08/15/2020 20:06:Shahla Baker RN) 53h. Mother Tested for HBsAG: Yes (08/15/2020 20:06:Shahla Baker RN) 53i. Date Tested: 04/14/2020 00:00 (08/15/2020 20:06:Shahla Baker RN) 53j. Test Result: Negative (08/15/2020 20:06:Shahla Baker RN) Obstetric Procedures 54a, b, c. Obstetric Procedures: Ultrasound; NST (08/15/2020 20:06:Alicia Duran RN) Cigarette Smoking Cigarette Smoking: Never Smoker. [id number] (08/15/2020 20:06:Shahla Baker RN) 55a. 3 Months Before Preg - Ci (08/15/2020 20:06:Shahla Baker RN) 55a. Packs: 0 (08/15/2020 20:06:Shahla Baker RN) 55b. 1st Trimester of Preg- Ci (08/15/2020 20:06:Shahla Baker RN) 55b. Packs: 0 (08/15/2020 20:06:Shahla Baker RN) 55c. 2nd Trimester of Preg- Ci (08/15/2020 20:06:Shahla Baker RN) 55c. Packs: 0 (08/15/2020 20:06:Shahla Baker RN) 55d. 3rd Trimester of Preg- Ci (08/15/2020 20:06:Shahla Baker RN) 55d. Packs: 0 (08/15/2020 20:06:Shahla Baker RN) Onset of Labor 56a. PROM >12 Hrs: 4.97 (08/15/2020 20:06:QS system process) 56b. Precipitous Labor <3 Hrs: 7 (08/15/2020 20:06:QS system process) 56c. Prolonged Labor > 20 Hrs: 7 (08/15/2020 20:06:QS system process) 57a. Induction of Labor: Induction (08/15/2020 20:06:Louann Wakefield RN) 57a. Induction of Labor: Cervidil (09/23/2020 06:38:Alicia Duran RN) 57c. Non-Vertex Presentation A: Vertex (08/15/2020 20:06:Eve Castillo RN) 57d. Steroids - Lung Mat: None (08/15/2020 20:06:Louann Wakefield RN) 57d. Steroids - Lung Mat: Not Applicable (08/15/2020 20:06:Louann Wakefield RN) 57f. Mat Ch[place] or Temp >100.4: 98.5 (08/15/2020 20:06:Louann Wakefield RN) 57g. Moderate/Heavy Meconium: Clear (09/24/2020 06:23:Alicia Duran RN) 57h. Intolerance of Labor: N/A (08/15/2020 20:06:Eve Castillo RN) : N/A (08/15/2020 20:06:Eve Castillo RN) 57i. Epidural/Spinal Anesthesia: Epidural (08/15/2020 20:06:Louann Wakefield RN) Method of Delivery 58a. Forceps - Unsuccessful A: N/A (08/15/2020 20:06:Louann Wakefield RN) 58b. Vacuum - Unsuccessful A: N/A (08/15/2020 20:06:Louann Wakefield RN) 58c. Presentation at 58c. Presentation at - A : Vertex (08/15/2020 20:06:Eve Castillo RN) 58c. Presentation at - A : N/A (08/15/2020 20:06:Louann Wakefield RN) 58c. Presentation at - A : Cephalic (08/15/2020 20:06:Louann Wakefield RN) Final Route and Method of Del 58d. Baby A Route/Delivery: Vaginal (09/24/2020 11:21:Louann Wakefield RN) 58e. Trial of Labor Attempted: No (08/15/2020 20:06:Louann Wakefield RN) 58e. Trial of Labor Attempted A: N/A (08/15/2020 20:06:January GUMARO Wakefield) 58e. Trial of Labor Attempted B: N/A (08/15/2020 20:06:January GUMARO Wakefield) Maternal Morbidity 59b. 3rd or 4th Degree Lacs: Perineal (08/15/2020 20:06:Bethany Segal, MD) 59b. 3rd or 4th Degree Lacs: right labial laceration (08/15/2020 20:06:Bethany Segal, MD) Birthweight Baby A: 3396 (08/15/2020 20:06:January GUMARO Wakefield) 60a. Pounds : 7 (08/15/2020 20:06:QS system process) 60b. Ounces: 8 (08/15/2020 20:06:QS system process) 61. GA at Delivery Baby A: 40.2 (08/15/2020 20:06:Louann GUMARO Wakefield) : Full Term- 39- 40.6 Weeks (08/15/2020 20:06:QS system process) 62a. 5 Minute Baby A: 9 (08/15/2020 20:06:QS system process)
--- NOTE | 2020-09-24 12:48 | Delivery Summary ---
Del Sum A-C Datetime Report Generated by CPN: 09/24/2020 12:48 DELIVERY PERSONNEL DELIVERY PERSONNEL: [id number] Delivery Doctor:: Bethany Segal MD Labor and Delivery Nurse:: Louann Wakefield RNrepair miller Nurse:: Eve Castillo RN Nursery Nurse:: Lori Gilbert RN Warehouse Consultant/VOCATIONAL SCHOOL TEACHER: Cristel Webb, ST Additional Personnel: : Sabrina Hung RN MATERNAL INFORMATION Delivery Anesthesia: Epidural Medications After Delivery: Pitocin 30 Units in 500ml NS/D5W Delivery QBL: 150 Maternal Complications: Other Complication Details: Gest. HTN Provider Comments: Called to patients room as she was complete and +3. After a few more contractions, a viable female infant was delivered in vertex BI presentation. After delivery of the head, the anterior shoulder came quickly and a body cord x 1 was noted. The rest of the body followed easily. APgars 8,9 at one and five minutes. LABOR SUMMARY EDC: 09/22/2020 00:00 No. Babies in Womb: 1 Attempted: No Labor Anesthesia: Epidural LABOR INFORMATION Reason for Induction: Gestational Hypertension Onset of Labor: 09/24/2020 03:35 Complete Dilatation: 09/24/2020 09:19 Cervical Ripening Agents: Cervidil Oxytocin: Induction Group B Beta Strep: Negative Antibiotics # of Doses: n/a Name of Antibiotic Given: n/a Steroids Given: None Reason Steroids Not Administered: Not Applicable MEMBRANES Membranes Rupture Method: Spontaneous Rupture of Membranes: 09/24/2020 06:23 Length of Rupture (hr): 4.97 Amniotic Fluid Color: Clear Amniotic Fluid Amount: Small Amniotic Fluid Odor: Normal STAGES OF LABOR Stage 1 hr: 5 Stage 1 min: 44 Stage 2 hr: 2 Stage 2 min: 2 Stage 3 hr: 0 Stage 3 min: 8 Total Time in Labor hr: 7 Total Time in Labor min: 54 VAGINAL DELIVERY Episiotomy: None Laceration #1: Perineal Laceration Extension #1: Second Degree Other Laceration: right labial laceration Laceration Repair: Yes Laceration Repair Note: 2-0 chromic in a layered closure Sponge Count Correct: Yes Sharps Count Correct: Yes CSECTION DELIVERY Primary Indication: N/A Secondary Indication: N/A BABY A INFORMATION Delivery Date/Time: 09/24/2020 11:21 Method of Delivery: Vaginal Nurse Controlled Delivery: No Born in Route : No : N/A Forceps: N/A Vacuum Extraction: N/A Shoulder Dystocia : No PRESENTATION/POSITION BABY A Presentation: Cephalic Cephalic Presentation: Vertex Vertex Position: Left Occipital Anterior Breech Presentation: N/A PLACENTA INFORMATION BABY A Placenta Delivery Time : 09/24/2020 11:29 Placenta Method of Delivery: Spontaneous Placenta Status: Delivered SCORES BABY A Heart Rate 1 min: >100 bpm Resp Effort 1 min: Good Cry Reflex Irritability 1 min: Cough or Sneeze or Pulls Away Muscle Tone 1 min: Active Motion Color 1 min: Blue/Pale Resuscitation Effort 1 min: Tactile Stimulation SCORE 1 MIN: 8 Heart Rate 5 min: >100 bpm Resp Effort 5 min: Good Cry Reflex Irritability 5 min: Cough or Sneeze or Pulls Away Muscle Tone 5 min: Active Motion Color 5 min: Body Kirkpatrick, Extremities Blue Resuscitation Effort 5 min: Tactile Stimulation SCORE 5 MIN: 9 INFANT INFORMATION BABY A Gestational Age at Delivery: 40.2 Gestational Status: Full Term- 39- 40.6 Weeks Infant Outcome : Liveborn Infant Condition : Stable Infant Sex: Female IDENTIFICATION BABY A Verification Date/Time: 09/24/2020 11:39 ID Band Number: [id number] Mother's Name Verified: Yes Infant RN Verifying : Latonia, RN Additional Verifying Personnel: Annette Haynes, QUALITY LEAD WEIGHT/LENGTH BABY A Birthweight (gm): 3396 Infant Weight (lb): 7 Weight (oz): 8 Length (in): 20.50 Length (cm): 52.07 CORD INFORMATION BABY A No. Cord Vessels: 3 Nuchal Cord : N/A Nuchal Cord- Other: Body cord Cord Blood Taken: Yes-For Eval (Mom's Blood Type - or O+) Infant Suction: Mouth; Nose ASSESSMENT BABY A Infant Complications: None Physical Findings at Delivery: Within Normal Limits Infant Respirations: Appears Normal Skin to Skin: Yes Skin to Skin Time (min): 65 [employer] Sales Representative/ALS Called : No Transferred To: Remains with Mother BABY B INFORMATION : N/A SIGNATURES Signature: with User ID: Manda : with User ID: Manda
[2020-09-24] MEDS ORDERED: IBUPROFEN 800 MG TABLET ONE (13:14)
[2020-09-24] MEDS: IBUPROFEN 800 MG TABLET PO SCH ×2 (13:18→21:23)
[2020-09-24] MEDS: FERROUS SULFATE 325 MG TABLET PO SCH (18:08)
[2020-09-24] MEDS: DOCUSATE SODIUM 100 MG CAPSULE PO SCH (18:09)
[2020-09-24] MEDS: FAMOTIDINE 20 MG TABLET PO SCH (21:22)
[2020-09-25] MEDS: IBUPROFEN 800 MG TABLET PO SCH ×3 (05:18→21:32)
[2020-09-25 07:12] LABS: HEMATOCRIT 30.7 % (36.0-47.0); HEMOGLOBIN 10.3 g/dL (12.0-15.5); MEAN CORPUSCULAR HEMOGLOBIN 30.1 pg (27.0-33.4); MEAN CORPUSCULAR HGB CONC 33.6 g/dL (32.0-36.0); MEAN CORPUSCULAR VOLUME 90 fl (80-97); PLATELET COUNT 119 10^3/uL (150-450); RED BLOOD COUNT 3.42 10^6/uL (3.72-5.28); RED CELL DISTRIBUTION WIDTH 15.7 % (11.5-14.0); WHITE BLOOD COUNT 9.5 10^3/uL (4.0-10.5)
[2020-09-25] MEDS: PRENATAL VITAMIN W DHA CAPSULE PO SCH (09:29)
[2020-09-25] MEDS: FERROUS SULFATE 325 MG TABLET PO SCH ×2 (09:29→18:04)
[2020-09-25] MEDS: SENNOSIDES/DOCUSATE 8.6-50 MG 1 EACH TABLET PO SCH (09:29)
[2020-09-25] MEDS: DOCUSATE SODIUM 100 MG CAPSULE PO SCH ×2 (09:29→18:04)
[2020-09-25] MEDS: FAMOTIDINE 20 MG TABLET PO SCH ×2 (09:29→21:31)
--- NOTE | 2020-09-25 10:11 | PDOC PROGRESS REPORT ---
Subjective-OB Progress Note for:: 09/25/20 - PP Day #1, doing well , no compliants, IOL for GHTN, denies headache, O+, Rubella Immune , Physical Exam (OB) Vital Signs: Temp Pulse Resp BP Pulse Ox 98.2 F 71 18 134/75 H 100 09/24/20 22:00 09/24/20 20:45 09/24/20 20:45 09/24/20 20:45 09/24/20 20:45 Intake & Output 09/24/20 09/25/20 09/26/20 06:59 06:59 06:59 Intake Total 900 Balance 900 - General General Appearance: Appears well, Alert In distress: None - PIH/Pre-Eclampsia DTR's: 1 + Clonus: Negative Headache: Absent Epigastric Pain: No Visual Changes: No - Maternal Morbidity 59. Maternal Morbidity (serious complications experinced by the mother associated with labor and delivery: None of the above - Lochia Lochia Amount: Small 10-25 ml Lochia Color: Rubra/Red - Abdomen Description: Soft Hernia Present: No Fundal Description: Firm, Midline Fundal Height: u/u - u/2 - Respiratory Respiratory Status: No respiratory distress - Abdominal Inspection: Normal Distension: No distension - Genitourinary Genitourinary Note: voiding - Extremities Upper extremity: Normal inspection Lower extremities: Edema - scant - Neurological Cognition: Normal Orientation: AAOx4 - Psychological Associated symptoms: Normal affect, Normal mood - Skin Skin Temperature: Warm Skin Moisture: Dry Objective-Diagnostic Laboratory: 09/25/20 06:50 09/25/20 06:50 WBC 9.5 RBC 3.42 L Hgb 10.3 L Hct 30.7 L MCV 90 MCH 30.1 MCHC 33.6 RDW 15.7 H Plt Count 119 L Assessment and Plan(PN) - Assessment and Plan (2) Second degree perineal laceration Is this a current diagnosis for this admission?: Yes (3) Gestational hypertension Qualifiers: Trimester: third trimester Qualified Code(s): O13.3 - Gestational [-induced] hypertension without significant proteinuria, third trimester Is this a current diagnosis for this admission?: Yes (4) Gestational thrombocytopenia Qualifiers: Trimester: third trimester Qualified Code(s): O99.113 - Other diseases of the blood and blood-forming organs and certain disorders involving the immune mechanism complicating , third trimester; D69.6 - Thrombocytopenia, unspecified Is this a current diagnosis for this admission?: Yes Plan:: Ambulation encouraged, Routine PP orders - Time Spent with Patient Time with patient: Less than 15 minutes Medications reviewed and adjusted accordingly: Yes - Disposition Anticipated Discharge Disposition: Home, Self Care Anticipated Discharge Timeframe: within 24 hours
[2020-09-25 13:40] LABS: AMORPHOUS SEDIMENT,URINE TRACE /HPF; APPEARANCE,URINE CLOUDY; BILIRUBIN,URINE NEGATIVE (NEGATIVE); COLOR,URINE YELLOW; GLUCOSE, URINE NEGATIVE (NEGATIVE); KETONES,URINE NEGATIVE (NEGATIVE); LEUKOCYTE ESTERASE,URINE LARGE (NEGATIVE); NITRITE,URINE NEGATIVE (NEGATIVE); PROTEIN,URINE 30 mg/dL (NEGATIVE); URINE SPECIFIC GRAVITY 1.008; UROBILINOGEN,URINE NEGATIVE mg/dL (<2.0)
[2020-09-25] MEDS ORDERED: CEPHALEXIN 500 MG CAPSULE PO SCH (18:15)
[2020-09-25] MEDS ORDERED: CEPHALEXIN 500 MG CAPSULE PO ONE (20:30)
[2020-09-25] MEDS ORDERED: CEPHALEXIN 500 MG CAPSULE ONE (21:29)
[2020-09-26] MEDS: IBUPROFEN 800 MG TABLET PO SCH (06:07)
[2020-09-26] MEDS ORDERED: CEPHALEXIN 500 MG CAPSULE PO SCH (10:00)
[2020-09-26] MEDS: DOCUSATE SODIUM 100 MG CAPSULE PO SCH (10:45)
[2020-09-26] MEDS: SENNOSIDES/DOCUSATE 8.6-50 MG 1 EACH TABLET PO SCH (10:45)
[2020-09-26] MEDS: FAMOTIDINE 20 MG TABLET PO SCH (10:45)
[2020-09-26] MEDS: FERROUS SULFATE 325 MG TABLET PO SCH (10:46)
[2020-09-26] MEDS: PRENATAL VITAMIN W DHA CAPSULE PO SCH (10:46)
[2020-09-26 11:57] VITALS: BP 129/85
--- NOTE | 2020-09-26 12:45 | PDOC DISCHARGE SUMMARY ---
Impression - Admit/DC Date/PCP Admission Date/Primary Care Provider: 09/23/20 05:28 SOPHIA LIZ MD Discharge Date: 09/26/20 - Discharge Diagnosis (1) Gestational hypertension Is this a current diagnosis for this admission?: Yes (2) Gestational thrombocytopenia Is this a current diagnosis for this admission?: Yes (4) Second degree perineal laceration Is this a current diagnosis for this admission?: Yes - Additional Information Discharge Diet: Regular Discharge Activity: Balance Activity w/Rest, Pelvic Rest Referrals: SOPHIA LIZ MD [Primary Care Provider] - Prescriptions: Cephalexin Monohydrate [Keflex 500 mg Capsule] 500 mg PO BID #14 capsule Ibuprofen [Motrin 800 mg Tablet] 800 mg PO Q8HP PRN #60 tablet PRN Reason: Home Medications: Pnv No.95/Ferrous Fum/Folic AC [ Caplet] 1 tab PO DAILY 03/09/20 Cephalexin Monohydrate [Keflex 500 mg Capsule] 500 mg PO BID #14 capsule 09/26/20 Ibuprofen [Motrin 800 mg Tablet] 800 mg PO Q8HP PRN #60 tablet 09/26/20 Hospital Course 59. Maternal Morbidity (serious complications experinced by the mother associated with labor and delivery: None of the above Results Laboratory Results: WBC 9.5 10^3/uL (4.0-10.5) 09/25/20 06:50 RBC 3.42 10^6/uL (3.72-5.28) L 09/25/20 06:50 Hgb 10.3 g/dL (12.0-15.5) L 09/25/20 06:50 Hct 30.7 % (36.0-47.0) L 09/25/20 06:50 MCV 90 fl (80-97) 09/25/20 06:50 MCH 30.1 pg (27.0-33.4) 09/25/20 06:50 MCHC 33.6 g/dL (32.0-36.0) 09/25/20 06:50 RDW 15.7 % (11.5-14.0) H 09/25/20 06:50 Plt Count 119 10^3/uL (150-450) L 09/25/20 06:50 Lymph % (Auto) 19.0 % (13-45) 09/23/20 06:04 [place] % (Auto) 7.8 % (3-13) 09/23/20 06:04 Eos % (Auto) 3.0 % (0-6) 09/23/20 06:04 Baso % (Auto) 0.4 % (0-2) 09/23/20 06:04 Absolute Neuts (auto) 5.4 10^3/uL (1.7-8.2) 09/23/20 06:04 Absolute Lymphs (auto) 1.5 10^3/uL (0.5-4.7) 09/23/20 06:04 Absolute Monos (auto) 0.6 10^3/uL (0.1-1.4) 09/23/20 06:04 Absolute Eos (auto) 0.2 10^3/uL (0.0-0.6) 09/23/20 06:04 Absolute Basos (auto) 0.0 10^3/uL (0.0-0.2) 09/23/20 06:04 Seg Neutrophils % 69.8 % (42-78) 09/23/20 06:04 Urine Color YELLOW 09/25/20 13:08 Urine Appearance CLOUDY 09/25/20 13:08 Urine pH 6.0 (5.0-9.0) 09/25/20 13:08 Ur Specific [place] 1.008 09/25/20 13:08 Urine Protein 30 mg/dL (NEGATIVE) H 09/25/20 13:08 Urine Glucose (UA) NEGATIVE mg/dL (NEGATIVE) 09/25/20 13:08 Urine Ketones NEGATIVE mg/dL (NEGATIVE) 09/25/20 13:08 Urine Blood LARGE (NEGATIVE) H 09/25/20 13:08 Urine Nitrite NEGATIVE (NEGATIVE) 09/25/20 13:08 Urine Bilirubin NEGATIVE (NEGATIVE) 09/25/20 13:08 Urine Urobilinogen NEGATIVE mg/dL (<2.0) 09/25/20 13:08 Ur Leukocyte Esterase LARGE (NEGATIVE) H 09/25/20 13:08 Urine WBC (Auto) 120 /HPF 09/25/20 13:08 Urine RBC (Auto) 114 /HPF 09/25/20 13:08 Urine Bacteria (Auto) TRACE /HPF 09/25/20 13:08 Urine WBC Clumps FEW /HPF 09/25/20 13:08 Squamous Epi Cells Auto 4 /HPF 09/25/20 13:08 Amorphous Sediment Auto TRACE /HPF 09/25/20 13:08 Urine Mucus (Auto) RARE /LPF 09/25/20 13:08 Urine Ascorbic Acid NEGATIVE (NEGATIVE) 09/25/20 13:08 Urine Opiates Screen NEGATIVE 09/23/20 05:40 Urine Methadone Screen NEGATIVE 09/23/20 05:40 Ur Barbiturates Screen NEGATIVE 09/23/20 05:40 Ur Phencyclidine Scrn NEGATIVE 09/23/20 05:40 Ur Amphetamines Screen NEGATIVE 09/23/20 05:40 U Benzodiazepines Scrn NEGATIVE 09/23/20 05:40 Urine Cocaine Screen NEGATIVE 09/23/20 05:40 U Marijuana (THC) Screen NEGATIVE 09/23/20 05:40 RPR NONREACTIVE (NONREACTIVE) 09/23/20 06:04 Blood Type O POSITIVE 09/23/20 06:04 Antibody Screen NEGATIVE 09/23/20 06:04 Plan Plan of Treatment: follow up in one week at [facility] for blood pressure check
== END 2020-09-26 14:50 | disposition home or self-care (01) | DRG 807 ==
LOC: LR 05:28 → 2N 09-24 14:59
PROVIDERS: ADMIT Student in an Organized Health Care Education/Training Program; ATTEND Student in an Organized Health Care Education/Training Program
PROC: 10E0XZZ Delivery of Products of Conception, External Approach (ICD-10-PCS; principal; 2020-09-24)
PROC: 0KQM0ZZ Repair Perineum Muscle, Open Approach (ICD-10-PCS; 2020-09-24)
PROC: 3E033VJ Introduction of Other Hormone into Peripheral Vein, Percutaneous Approach (ICD-10-PCS; 2020-09-24)
DX: O13.4 Gestational [pregnancy-induced] hypertension without significant proteinuria, complicating childbirth (principal); Z37.0 Single live birth; O69.82X0 Labor and delivery complicated by other cord entanglement, without compression, not applicable or unspecified; Z3A.40 40 weeks gestation of pregnancy; O70.0 First degree perineal laceration during delivery
CPT/HCPCS: 1967; 36415; 80307; 81001; 85025; 85027; 86592; 86850; 86900; 86901; 87086; 87088; 87186; 94760; J2405; J2590; J2795; J3010; J3490